=== PATIENT | male | born 1945 | race African-American/Black ===

== ENCOUNTER 2017-10-24 18:56 | Inpatient (IN) | payer MEDICARE, OTHER, MEDICAID ==
[~2017-10-24 18:56] MED LIST: DEXTROSE 50% 50 ML SYRINGE; EPINEPHrine 0.1 MG/ML SYG; NA BICARBONATE 8.4% 50 ML SYG
[2017-10-24] MEDS: ETOMIDATE 20 MG INJ IV (19:22)
[2017-10-24] MEDS: HYDROmorphONE 0.5 MG/0.5 ML SYG IV (19:22)
[2017-10-24] MEDS: PROPOFOL 100 ML IV (19:22)
[2017-10-24] MEDS: SUCCINYLCHOLINE CHLORIDE 100 MG/5 ML SYG IV (19:22)
[2017-10-24 19:23] LABS: ADD MAN DIFF? NO
[2017-10-24 19:24] LABS: BASOPHILS % 0.1 % (0.0-2.0); HEMATOCRIT 27.7 % (42.0-52.0); HEMOGLOBIN 8.5 g/dl (14.0-18.0); LYMPHOCYTES # 1.2 10^3/ul (0.8-2.9); LYMPHOCYTES % 5.4 % (15.0-51.0); MEAN CORPUSCULAR HEMOGLOBIN 27.9 pg (29.0-33.0); MEAN CORPUSCULAR HGB CONC 30.7 g/dl (32.0-37.0); MEAN CORPUSCULAR VOLUME 90.8 fl (82.0-101.0); MEAN PLATELET VOLUME 9.2 fl (7.4-10.4); MONOCYTE # 1.1 10^3/ul (0.3-0.9); MONOCYTES % 5.2 % (0.0-11.0); NEUTROPHIL # 19.2 10^3/ul (1.6-7.5); NEUTROPHILS % 88.8 % (39.0-77.0); PLATELET COUNT 317 10^3/UL (140-415); RED BLOOD COUNT 3.05 10^6/ul (4.70-6.10); RED CELL DISTRIBUTION WIDTH 14.8 % (11.5-14.5)
[2017-10-24 19:24] LABS: WHITE BLOOD COUNT 21.6 10^3/ul (4.8-10.8)
[2017-10-24 19:43] LABS: ALANINE AMINOTRANSFERASE 9 IU/L (13-69); ALBUMIN 3.2 g/dl (3.3-4.9); ALBUMIN/GLOBULIN RATIO 0.54; ALKALINE PHOSPHATASE 215 IU/L (42-121); ANION GAP 20 (8-16); ASPARTATE AMINO TRANSFERASE 29 IU/L (15-46); BILIRUBIN,INDIRECT 0.1 mg/dl (0-1.1); BILIRUBIN,TOTAL 0.1 mg/dl (0.2-1.3); BLOOD UREA NITROGEN 34 mg/dl (7-20); CALCIUM 9.4 mg/dl (8.4-10.2); CARBON DIOXIDE 23 mmol/L (21-31); CHLORIDE 118 mmol/L (97-110); GLUCOSE 188 mg/dl (70-220); POTASSIUM 3.5 mmol/L (3.5-5.1); SODIUM 157 mmol/L (135-144); TOTAL PROTEIN 9.1 g/dl (6.1-8.1)
[2017-10-24 19:54] LABS: TROPONIN-I 0.016 ng/ml (0.00-0.12)
[2017-10-24 19:55] LABS: LACTIC ACID 4.1 mmol/L (0.5-2.0)
[2017-10-24 20:01] LABS: PROTIME 17.4 Sec (11.9-14.9); PT RATIO 1.4
[2017-10-24 20:02] LABS: PARTIAL THROMBOPLASTIN TIME 41.4 Sec (25.0-35.0)
[2017-10-24] MEDS: CEFEPIME 2GM/50 ML (PMX) 50 ML IVPB (20:13)
[2017-10-24] MEDS: NORepinephrine 8MG/250 ML (PMX 250 ML IV (20:15)
[2017-10-24] MEDS: SOD CHLORIDE 0.9% 1,000 ML IV ×5 (20:15→20:17)
[2017-10-24 20:45] LABS: AADO2 Arterial 258.3 mmHg (7.0-24.0); Arterial Blood Gas Oxygen Sat 99.8 mmHG (95.0-98.0); Arterial COHb 0.3 % (0.0-3.0); Arterial Fraction of Oxyhgb 98.9 % (93.0-99.0); Arterial HCO3 13.4 mmol/L (22.0-26.0); Arterial MetHb 0.6 % (0.0-1.5); Arterial Total Hemglobin 8.3 g/dl (12.0-18.0); Arterial pCO2 42.9 mmhg (35-45); MODE VENT - AC; Site Right Brachial
[2017-10-24] MEDS: VECURONIUM 10 MG VIAL IV (21:30)
[2017-10-24] MEDS ORDERED: ACETAMINOPHEN 650MG/20.3ML CUP PO ×2 (22:00→22:30)
[2017-10-24] MEDS ORDERED: ALBUTEROL HFA 8 GM INHALER INH (22:00)
[2017-10-24] MEDS ORDERED: IPRATROPIUM (HFA) 12.9 GM INHALER INH (22:00)
[2017-10-24] MEDS: VECURONIUM 100 MG in DEXTROSE 5% 100 ML IV (22:02)
[2017-10-24] MEDS: MIDAZOLAM (DRIP) 50 mg/50 mL 50 ML IV (22:03)
[2017-10-24] MEDS: VANCOMYCIN 1 GM (PMX) 250 ML IVPB (22:03)
[2017-10-24] MEDS ORDERED: ACETAMINOPHEN 650 MG SUPP PR (22:30)
[2017-10-24] MEDS ORDERED: DEXTROSE 50% 50 ML SYRINGE IV ×2 (22:30)
[2017-10-24] MEDS ORDERED: MEPERIDINE 25 MG INJ IV ×2 (22:30)
[2017-10-24] MEDS: ACCU-CHEK XX ×2 (22:30→23:30)
[2017-10-24 22:44] LABS: LACTIC ACID 8.1 mmol/L (0.5-2.0)
[2017-10-24 22:56] LABS: ADD MAN DIFF? NO
[2017-10-24 22:59] LABS: ABNORMAL IP MESSAGE 1; HEMATOCRIT 23.2 % (42.0-52.0); HEMOGLOBIN 7.2 g/dl (14.0-18.0); LYMPHOCYTES # 0.5 10^3/ul (0.8-2.9); LYMPHOCYTES % 2.5 % (15.0-51.0); MEAN CORPUSCULAR HEMOGLOBIN 28.8 pg (29.0-33.0); MEAN CORPUSCULAR VOLUME 92.8 fl (82.0-101.0); MEAN PLATELET VOLUME 9.3 fl (7.4-10.4); MONOCYTE # 0.6 10^3/ul (0.3-0.9); MONOCYTES % 2.6 % (0.0-11.0); NEUTROPHIL # 20.6 10^3/ul (1.6-7.5); NUCLEATED RED BLOOD CELLS% 0.1 /100WBC (0.0-0.0); PLATELET COUNT 261 10^3/UL (140-415); POSITIVE DIFF @See below
[2017-10-24 22:59] LABS: WHITE BLOOD COUNT 21.9 10^3/ul (4.8-10.8)
[2017-10-24 23:16] LABS: ALANINE AMINOTRANSFERASE 14 IU/L (13-69); ALBUMIN 2.4 g/dl (3.3-4.9); ALKALINE PHOSPHATASE 163 IU/L (42-121); ANION GAP 19 (8-16); ASPARTATE AMINO TRANSFERASE 37 IU/L (15-46); BLOOD UREA NITROGEN 33 mg/dl (7-20); CALCIUM 8.8 mg/dl (8.4-10.2); CARBON DIOXIDE 17 mmol/L (21-31); CHLORIDE 124 mmol/L (97-110); CREATININE 1.67 mg/dl (0.61-1.24); GLUCOSE 232 mg/dl (70-220); SODIUM 157 mmol/L (135-144); TOTAL PROTEIN 7.2 g/dl (6.1-8.1)
[2017-10-24 23:18] LABS: LACTIC ACID 6.7 mmol/L (0.5-2.0)
[2017-10-25] MEDS: ACCU-CHEK XX ×24 (00:30→23:30)
[2017-10-25 02:05] LABS: AADO2 Arterial 174.8 mmHg (7.0-24.0); Allen Test ACCEPTAB; Arterial Base Excess -8.9 mmol/L (-3.0-3); Arterial Blood Gas Oxygen Sat 95.4 mmHG (95.0-98.0); Arterial COHb 0.3 % (0.0-3.0); Arterial Fraction of Oxyhgb 94.7 % (93.0-99.0); Arterial HCO3 17.4 mmol/L (22.0-26.0); Arterial MetHb 0.4 % (0.0-1.5); MODE VENT - AC; Site Left Radial; Temperature 33.1 C
[2017-10-25] MEDS: INSULIN HUMAN REGULAR 100 UNIT in SOD CHLORIDE 0.9% 99 ML IV (03:21)
[2017-10-25] MEDS: SOD CHLORIDE 0.9% 1,000 ML IV (03:33)
[2017-10-25] MEDS ORDERED: VANCOMYCIN IV PER PHARMACY XX (05:00)
[2017-10-25 05:03] LABS: ADD UMIC YES; UR ASCORBIC ACID 40 mg/dL (NEGATIVE); UR BACTERIA FEW /HPF (NONE SEEN); UR BILIRUBIN (Dip) NEGATIVE (NEGATIVE); UR BLOOD (Dip) 2+ mg/dL (NEGATIVE); UR BUDDING YEAST FEW /HPF (NONE SEEN); UR CLARITY CLOUDY (CLEAR); UR COLOR AMBER (YELLOW); UR GLUCOSE (Dip) 1+ mg/dL (NEGATIVE); UR KETONES (Dip) NEGATIVE (NEGATIVE); UR LEUKOCYTE ESTERASE (Dip) 3+ Leu/ul (NEGATIVE); UR MUCUS FEW /HPF (NONE SEEN); UR NITRITE (Dip) NEGATIVE (NEGATIVE); UR NONSQUAMOUS EPITHELIAL CELL 1 /HPF (NONE SEEN); UR RBC > 182 /HPF (0-5); UR SPECIFIC GRAVITY (Dip) 1.018 (1.003-1.030); UR TOTAL PROTEIN (Dip) 3+ mg/dl (NEGATIVE); UR UROBILINOGEN (Dip) NEGATIVE (NEGATIVE); UR WBC 172 /HPF (0-5)
[2017-10-25] MEDS: PANTOPRAZOLE 40 MG INJ IV (05:57)
[2017-10-25] MEDS: OCULAR LUBRICANT 3.5 GM OPH OINT BOTH EYES ×4 (05:58→18:18)
[2017-10-25] MEDS: PIPER-TAZO 3.375 GM IV (PMX) 100 ML IVPB ×3 (05:58→18:26)
[2017-10-25] MEDS: ARTIFICIAL TEARS 15 ML OPH BOTH EYES ×4 (05:59→18:19)
[2017-10-25 06:20] LABS: ALANINE AMINOTRANSFERASE 15 IU/L (13-69); ALBUMIN 2.5 g/dl (3.3-4.9); ALBUMIN/GLOBULIN RATIO 0.51; ALKALINE PHOSPHATASE 165 IU/L (42-121); ANION GAP 19 (8-16); ASPARTATE AMINO TRANSFERASE 49 IU/L (15-46); BLOOD UREA NITROGEN 36 mg/dl (7-20); CALCIUM 8.3 mg/dl (8.4-10.2); CARBON DIOXIDE 17 mmol/L (21-31); CHLORIDE 127 mmol/L (97-110); CREATININE 1.66 mg/dl (0.61-1.24); GLUCOSE 219 mg/dl (70-220); POTASSIUM 3.3 mmol/L (3.5-5.1); SODIUM 160 mmol/L (135-144); TOTAL PROTEIN 7.4 g/dl (6.1-8.1)
[2017-10-25 06:23] LABS: LACTIC ACID 3.1 mmol/L (0.5-2.0)
[2017-10-25] MEDS ORDERED: HEPARIN 1000 UNITS/ML 10 ML INJ IV ×2 (08:00)
[2017-10-25 08:21] LABS: AADO2 Arterial 265.9 mmHg (7.0-24.0); Allen Test ACCEPTAB; Arterial Base Excess -8.8 mmol/L (-3.0-3); Arterial Blood Gas Oxygen Sat 91.4 mmHG (95.0-98.0); Arterial COHb 0.2 % (0.0-3.0); Arterial Fraction of Oxyhgb 91.1 % (93.0-99.0); Arterial HCO3 17.8 mmol/L (22.0-26.0); Arterial MetHb 0.1 % (0.0-1.5); MODE VENT - AC; Site Left Radial; Temperature 32.5 C
[2017-10-25 08:28] LABS: WHITE BLOOD COUNT 28.1 10^3/ul (4.8-10.8)
[2017-10-25 08:28] LABS: ABNORMAL IP MESSAGE 1; HEMATOCRIT 25.1 % (42.0-52.0); HEMOGLOBIN 7.9 g/dl (14.0-18.0); MEAN CORPUSCULAR HEMOGLOBIN 28.9 pg (29.0-33.0); MEAN CORPUSCULAR HGB CONC 31.5 g/dl (32.0-37.0); MEAN CORPUSCULAR VOLUME 91.9 fl (82.0-101.0); MEAN PLATELET VOLUME 9.5 fl (7.4-10.4); NUCLEATED RED BLOOD CELLS% 0.1 /100WBC (0.0-0.0); PLATELET COUNT 216 10^3/UL (140-415); POSITIVE DIFF @See below; RED BLOOD COUNT 2.73 10^6/ul (4.70-6.10); RED CELL DISTRIBUTION WIDTH 15.1 % (11.5-14.5)
[2017-10-25 08:31] LABS: ADD MAN DIFF? YES
[2017-10-25 08:46] LABS: INR 1.49; PROTIME 18.3 Sec (11.9-14.9); PT RATIO 1.4
[2017-10-25 08:47] LABS: PARTIAL THROMBOPLASTIN TIME 40.2 Sec (25.0-35.0)
[2017-10-25 08:49] LABS: ANION GAP 17 (8-16); BLOOD UREA NITROGEN 36 mg/dl (7-20); CALCIUM 8.4 mg/dl (8.4-10.2); CARBON DIOXIDE 17 mmol/L (21-31); CHLORIDE 128 mmol/L (97-110); CREATININE 1.84 mg/dl (0.61-1.24); GLUCOSE 179 mg/dl (70-220); POTASSIUM 3.1 mmol/L (3.5-5.1); SODIUM 159 mmol/L (135-144)
[2017-10-25 09:09] LABS: ACANTHOCYTES 1+ (0-0); ANISOCYTOSIS 1+ (0-0); ECHINOCYTOSIS 1+ (0-0); SCHISTOCYTES 1+ (0-0)
[2017-10-25] MEDS: HEPARIN 1000 UNITS/ML 10 ML INJ IV (09:23)
[2017-10-25] MEDS: HEPARIN 25000 UNITS/250 ML 250 ML IV (09:25)
[2017-10-25] MEDS ORDERED: POTASSIUM CHLORIDE 50 ML IVPB (10:00)
[2017-10-25] MEDS: DEXTROSE 5% 1,000 ML IV ×5 (10:50→21:50)
[2017-10-25 10:59] LABS: BAND NEUTROPHILS #M 3.6 10^3/ul (0.0-0.6); BAND NEUTROPHILS % (M) 13 % (0-4); BURR CELLS 1+ (0-0); LYMPHOCYTES #M 0.5 10^3/ul (0.8-2.9); LYMPHOCYTES % (M) 2 % (15-51); MONOCYTE #M 1.4 10^3/ul (0.3-0.9); MONOCYTES % (M) 5 % (0-11); OVALOCYTES 1+ (0-0); POIKILOCYTOSIS 1+ (0-0); POLYCHROMASIA 1+ (0-0); REACTIVE LYMPHOCYTES #M 0.2 10^3/ul (0.0-0.0); REACTIVE LYMPHOCYTES% (M) 1 % (0-0); SEG NEUT #M 23.2 10^3/ul (1.6-7.5); SEGMENTED NEUTROPHILS (M) % 79 % (39-77); SMUDGE%M 23 % (0-0); SPHEROCYTES 1+ (0-0); TARGET CELLS 1+ (0-0)
[2017-10-25] MEDS: KCL 30 MEQ in NS 250 ML IVPB X1 IVPB (11:23)
[2017-10-25] MEDS: VANCOMYCIN 1.5 GM in SOD CHLORIDE 0.9% 250 ML IVPB (11:38)
[2017-10-25 13:48] LABS: ADD MAN DIFF? NO
[2017-10-25 14:05] LABS: WHITE BLOOD COUNT 24.2 10^3/ul (4.8-10.8)
[2017-10-25 14:05] LABS: ABNORMAL IP MESSAGE 1; BASOPHILS % 0.1 % (0.0-2.0); HEMATOCRIT 23.7 % (42.0-52.0); HEMOGLOBIN 7.2 g/dl (14.0-18.0); LYMPHOCYTES # 1.9 10^3/ul (0.8-2.9); LYMPHOCYTES % 7.8 % (15.0-51.0); MEAN CORPUSCULAR HEMOGLOBIN 28.2 pg (29.0-33.0); MEAN CORPUSCULAR HGB CONC 30.4 g/dl (32.0-37.0); MEAN CORPUSCULAR VOLUME 92.9 fl (82.0-101.0); NEUTROPHIL # 21.2 10^3/ul (1.6-7.5); NEUTROPHILS % 87.6 % (39.0-77.0); PLATELET COUNT 177 10^3/UL (140-415); POSITIVE DIFF @See below; RED BLOOD COUNT 2.55 10^6/ul (4.70-6.10); RED CELL DISTRIBUTION WIDTH 15.4 % (11.5-14.5)
[2017-10-25 14:10] LABS: INR 1.85; PT RATIO 1.7
[2017-10-25 14:17] LABS: ALANINE AMINOTRANSFERASE 25 IU/L (13-69); ALBUMIN 2.6 g/dl (3.3-4.9); ALBUMIN/GLOBULIN RATIO 0.55; ALKALINE PHOSPHATASE 160 IU/L (42-121); AMYLASE 61 U/L (11-123); ANION GAP 20 (8-16); ASPARTATE AMINO TRANSFERASE 67 IU/L (15-46); BLOOD UREA NITROGEN 37 mg/dl (7-20); CALCIUM 8.1 mg/dl (8.4-10.2); CARBON DIOXIDE 19 mmol/L (21-31); CHLORIDE 127 mmol/L (97-110); CREATININE 1.89 mg/dl (0.61-1.24); GLUCOSE 138 mg/dl (70-220); LIPASE 71 U/L (23-300); MAGNESIUM 1.9 mg/dl (1.7-2.5); PHOSPHORUS 4.4 mg/dl (2.5-4.9); POTASSIUM 3.5 mmol/L (3.5-5.1); TOTAL PROTEIN 7.3 g/dl (6.1-8.1)
[2017-10-25 14:23] LABS: SODIUM 162 mmol/L (135-144)
[2017-10-25 14:27] LABS: TROPONIN-I 0.121 ng/ml (0.00-0.12)
[2017-10-25 15:03] LABS: PROTIME 21.8 Sec (11.9-14.9)
[2017-10-25 16:11] LABS: AADO2 Arterial 328.2 mmHg (7.0-24.0); Arterial Base Excess -9.5 mmol/L (-3.0-3); Arterial Blood Gas Oxygen Sat 92.2 mmHG (95.0-98.0); Arterial COHb 0.3 % (0.0-3.0); Arterial Fraction of Oxyhgb 91.6 % (93.0-99.0); Arterial HCO3 17.4 mmol/L (22.0-26.0); Arterial MetHb 0.3 % (0.0-1.5); Arterial Total Hemglobin 8.7 g/dl (12.0-18.0); Arterial pCO2 36.5 mmhg (35-45); MODE VENT - AC; Site Right Brachial; Temperature 33.7 C
[2017-10-25 16:44] LABS: INR 1.76; PT RATIO 1.6
[2017-10-25 16:45] LABS: ALANINE AMINOTRANSFERASE 28 IU/L (13-69); ALBUMIN 2.7 g/dl (3.3-4.9); ALBUMIN/GLOBULIN RATIO 0.57; ALKALINE PHOSPHATASE 167 IU/L (42-121); AMYLASE 66 U/L (11-123); ANION GAP 19 (8-16); ASPARTATE AMINO TRANSFERASE 76 IU/L (15-46); BLOOD UREA NITROGEN 38 mg/dl (7-20); CARBON DIOXIDE 18 mmol/L (21-31); CHLORIDE 123 mmol/L (97-110); CREATININE 1.91 mg/dl (0.61-1.24); GLUCOSE 192 mg/dl (70-220); LIPASE 65 U/L (23-300); MAGNESIUM 1.9 mg/dl (1.7-2.5); PHOSPHORUS 4.5 mg/dl (2.5-4.9); POTASSIUM 3.3 mmol/L (3.5-5.1); SODIUM 157 mmol/L (135-144); TOTAL PROTEIN 7.4 g/dl (6.1-8.1)
[2017-10-25 16:56] LABS: TROPONIN-I 0.118 ng/ml (0.00-0.12)
[2017-10-25] MEDS: LEVOTHYROXINE 25 MCG TAB PO (17:30)
[2017-10-25 17:35] LABS: PARTIAL THROMBOPLASTIN TIME > 180.0 Sec (25.0-35.0)
[2017-10-25] MEDS: POTASSIUM CHLORIDE 100 ML IVPB (17:57)
[2017-10-25] MEDS: PROPOFOL 100 ML IV (18:00)
[2017-10-25 18:38] LABS: SODIUM,URINE RANDOM 89 mmol/L (30-90)
[2017-10-25 19:05] LABS: ADD MAN DIFF? NO
[2017-10-25 19:09] LABS: BASOPHILS % 0.1 % (0.0-2.0); HEMATOCRIT 23.4 % (42.0-52.0); HEMOGLOBIN 7.2 g/dl (14.0-18.0); LYMPHOCYTES # 1.5 10^3/ul (0.8-2.9); LYMPHOCYTES % 6.7 % (15.0-51.0); MEAN CORPUSCULAR HEMOGLOBIN 28.7 pg (29.0-33.0); MEAN CORPUSCULAR HGB CONC 30.8 g/dl (32.0-37.0); MEAN CORPUSCULAR VOLUME 93.2 fl (82.0-101.0); MEAN PLATELET VOLUME 9.8 fl (7.4-10.4); MONOCYTE # 0.9 10^3/ul (0.3-0.9); MONOCYTES % 4.3 % (0.0-11.0); NEUTROPHIL # 19.2 10^3/ul (1.6-7.5); NEUTROPHILS % 88.3 % (39.0-77.0); PLATELET COUNT 151 10^3/UL (140-415); POSITIVE DIFF @See below; RED BLOOD COUNT 2.51 10^6/ul (4.70-6.10); RED CELL DISTRIBUTION WIDTH 15.4 % (11.5-14.5)
[2017-10-25 19:09] LABS: WHITE BLOOD COUNT 21.8 10^3/ul (4.8-10.8)
[2017-10-25 19:11] LABS: OSMOLALITY,URINE 377 mOsm/kg (250-1200)
[2017-10-25 19:28] LABS: INR 1.92; PT RATIO 1.8
[2017-10-25 19:32] LABS: ANION GAP 16 (8-16); BLOOD UREA NITROGEN 38 mg/dl (7-20); CALCIUM 7.7 mg/dl (8.4-10.2); CARBON DIOXIDE 16 mmol/L (21-31); CHLORIDE 122 mmol/L (97-110); CREATININE 2.01 mg/dl (0.61-1.24); GLUCOSE 218 mg/dl (70-220); POTASSIUM 3.4 mmol/L (3.5-5.1); SODIUM 151 mmol/L (135-144)
[2017-10-25 19:45] LABS: PARTIAL THROMBOPLASTIN TIME > 180.0 Sec (25.0-35.0); PROTIME 22.4 Sec (11.9-14.9)
[2017-10-25 19:46] LABS: PARTIAL THROMBOPLASTIN TIME > 180.0 Sec (25.0-35.0)
[2017-10-25 19:48] LABS: PROTIME 20.9 Sec (11.9-14.9)
[2017-10-25 20:32] LABS: AADO2 Arterial 459.5 mmHg (7.0-24.0); Allen Test ACCEPTAB; Arterial Base Excess -8.4 mmol/L (-3.0-3); Arterial Blood Gas Oxygen Sat 97.1 mmHG (95.0-98.0); Arterial COHb 0.3 % (0.0-3.0); Arterial Fraction of Oxyhgb 96.4 % (93.0-99.0); Arterial HCO3 17.5 mmol/L (22.0-26.0); Arterial MetHb 0.4 % (0.0-1.5); Arterial pCO2 31.7 mmhg (35-45); MODE VENT - AC; Site Right Radial; Temperature 33.1 C
[2017-10-25] MEDS: PHENYTOIN 100 MG CAP PO (21:00)
[2017-10-25] MEDS ORDERED: VANCOMYCIN 1.25 GM in SOD CHLORIDE 0.9% 250 ML IVPB (22:00)
[2017-10-25] MEDS ORDERED: VANCOMYCIN 1.5 GM in SOD CHLORIDE 0.9% 250 ML IVPB (22:00)
[2017-10-25] MEDS: ACETAMINOPHEN 650 MG SUPP PR (22:30)
[2017-10-25 22:49] LABS: ANION GAP 18 (8-16); BLOOD UREA NITROGEN 39 mg/dl (7-20); CALCIUM 7.7 mg/dl (8.4-10.2); CARBON DIOXIDE 19 mmol/L (21-31); CHLORIDE 119 mmol/L (97-110); CREATININE 2.02 mg/dl (0.61-1.24); GLUCOSE 218 mg/dl (70-220); POTASSIUM 3.1 mmol/L (3.5-5.1); SODIUM 153 mmol/L (135-144)
[2017-10-25] MEDS: FAMOTIDINE 20 MG TAB PO (23:01)
[2017-10-25] MEDS: ACETAMINOPHEN 650MG/20.3ML CUP PO (23:01)
[2017-10-25] MEDS: FUROSEMIDE 40 MG INJ IV (23:01)
[2017-10-25] MEDS: ATORVASTATIN 20 MG TAB PO (23:02)
[2017-10-25] MEDS: SOD CHLORIDE 0.45% 1,000 ML IV (23:06)
[2017-10-26] MEDS: ARTIFICIAL TEARS 15 ML OPH BOTH EYES ×4 (00:28→18:07)
[2017-10-26] MEDS: OCULAR LUBRICANT 3.5 GM OPH OINT BOTH EYES ×4 (00:28→18:07)
[2017-10-26] MEDS: PIPER-TAZO 3.375 GM IV (PMX) 100 ML IVPB ×3 (00:29→11:35)
[2017-10-26] MEDS: ACCU-CHEK XX ×24 (01:01→23:30)
[2017-10-26 01:06] LABS: ABNORMAL IP MESSAGE 1; HEMATOCRIT 21.7 % (42.0-52.0); MEAN CORPUSCULAR HEMOGLOBIN 28.6 pg (29.0-33.0); MEAN CORPUSCULAR HGB CONC 30.9 g/dl (32.0-37.0); MEAN CORPUSCULAR VOLUME 92.7 fl (82.0-101.0); MEAN PLATELET VOLUME 10.1 fl (7.4-10.4); PLATELET COUNT 143 10^3/UL (140-415); POSITIVE DIFF @See below; RED BLOOD COUNT 2.34 10^6/ul (4.70-6.10); RED CELL DISTRIBUTION WIDTH 15.2 % (11.5-14.5)
[2017-10-26 01:06] LABS: WHITE BLOOD COUNT 18.9 10^3/ul (4.8-10.8)
[2017-10-26] MEDS: NORepinephrine 8MG/250 ML (PMX 250 ML IV (01:08)
[2017-10-26 01:24] LABS: ADD MAN DIFF? YES; HEMOGLOBIN 6.7 g/dl (14.0-18.0)
[2017-10-26 01:29] LABS: ALANINE AMINOTRANSFERASE 32 IU/L (13-69); ALBUMIN 2.3 g/dl (3.3-4.9); ALBUMIN/GLOBULIN RATIO 0.53; ALKALINE PHOSPHATASE 144 IU/L (42-121); AMYLASE 69 U/L (11-123); ANION GAP 16 (8-16); ASPARTATE AMINO TRANSFERASE 99 IU/L (15-46); BLOOD UREA NITROGEN 38 mg/dl (7-20); CALCIUM 7.5 mg/dl (8.4-10.2); CARBON DIOXIDE 18 mmol/L (21-31); CHLORIDE 118 mmol/L (97-110); CREATININE 1.95 mg/dl (0.61-1.24); GLUCOSE 143 mg/dl (70-220); LIPASE 184 U/L (23-300); MAGNESIUM 1.6 mg/dl (1.7-2.5); PHOSPHORUS 4.1 mg/dl (2.5-4.9); SODIUM 149 mmol/L (135-144); TOTAL PROTEIN 6.6 g/dl (6.1-8.1)
[2017-10-26 01:40] LABS: TROPONIN-I 0.088 ng/ml (0.00-0.12)
[2017-10-26 01:46] LABS: POTASSIUM 2.8 mmol/L (3.5-5.1)
[2017-10-26 01:47] LABS: ANISOCYTOSIS 1+ (0-0); BAND NEUTROPHILS #M 3.7 10^3/ul (0.0-0.6); BAND NEUTROPHILS % (M) 20 % (0-4); LYMPHOCYTES #M 1.1 10^3/ul (0.8-2.9); LYMPHOCYTES % (M) 6 % (15-51); MONOCYTE #M 0.1 10^3/ul (0.3-0.9); MONOCYTES % (M) 1 % (0-11); PLATELET ESTIMATE NORMAL; POIKILOCYTOSIS 3+ (0-0); POLYCHROMASIA 3+ (0-0); SEG NEUT #M 14.5 10^3/ul (1.6-7.5); SEGMENTED NEUTROPHILS (M) % 73 % (39-77); SMUDGE%M 2 % (0-0)
[2017-10-26 02:07] LABS: AADO2 Arterial 185.6 mmHg (7.0-24.0); Allen Test ACCEPTAB; Arterial Base Excess -9.2 mmol/L (-3.0-3); Arterial Blood Gas Oxygen Sat 99.7 mmHG (95.0-98.0); Arterial COHb 0.3 % (0.0-3.0); Arterial MetHb 0.4 % (0.0-1.5); Arterial pCO2 28.2 mmhg (35-45); MODE VENT - AC; Site Right Radial; Temperature 34.1 C
[2017-10-26] MEDS: SOD CHLORIDE 0.45% 1,000 ML IV ×2 (02:08→06:30)
[2017-10-26] MEDS ORDERED: POTASSIUM CHLORIDE 50 ML IVPB (02:30)
[2017-10-26] MEDS: POTASSIUM CHLORIDE 20 MEQ/SW 100 ML IVPB ×2 (03:49→05:37)
[2017-10-26] MEDS: ACETAMINOPHEN 650 MG SUPP PR ×4 (04:30→21:39)
[2017-10-26] MEDS: DEXTROSE 5% 1,000 ML IV ×4 (04:49→20:38)
[2017-10-26] MEDS: ACETAMINOPHEN 650MG/20.3ML CUP PO ×4 (05:03→21:38)
[2017-10-26 06:23] LABS: WHITE BLOOD COUNT 20.4 10^3/ul (4.8-10.8)
[2017-10-26 06:23] LABS: ABNORMAL IP MESSAGE 1; HEMATOCRIT 21.2 % (42.0-52.0); MEAN CORPUSCULAR HEMOGLOBIN 28.6 pg (29.0-33.0); MEAN CORPUSCULAR HGB CONC 31.1 g/dl (32.0-37.0); MEAN CORPUSCULAR VOLUME 91.8 fl (82.0-101.0); MEAN PLATELET VOLUME 10.3 fl (7.4-10.4); NUCLEATED RED BLOOD CELLS% 0.1 /100WBC (0.0-0.0); PLATELET COUNT 149 10^3/UL (140-415); POSITIVE DIFF @See below; RED BLOOD COUNT 2.31 10^6/ul (4.70-6.10); RED CELL DISTRIBUTION WIDTH 15.1 % (11.5-14.5)
[2017-10-26 06:30] LABS: ADD MAN DIFF? YES; HEMOGLOBIN 6.6 g/dl (14.0-18.0)
[2017-10-26] MEDS ORDERED: LORAZEPAM 2 MG INJ IV (06:30)
[2017-10-26] MEDS: LORAZEPAM 2 MG INJ IV ×3 (06:44→20:39)
[2017-10-26 06:53] LABS: INR 1.84; PROTIME 21.7 Sec (11.9-14.9); PT RATIO 1.7
[2017-10-26 06:56] LABS: ALANINE AMINOTRANSFERASE 30 IU/L (13-69); ALBUMIN 2.3 g/dl (3.3-4.9); ALBUMIN/GLOBULIN RATIO 0.52; ALKALINE PHOSPHATASE 149 IU/L (42-121); AMYLASE 95 U/L (11-123); ANION GAP 18 (8-16); ASPARTATE AMINO TRANSFERASE 92 IU/L (15-46); BLOOD UREA NITROGEN 39 mg/dl (7-20); CALCIUM 7.3 mg/dl (8.4-10.2); CARBON DIOXIDE 18 mmol/L (21-31); CHLORIDE 117 mmol/L (97-110); CREATININE 1.99 mg/dl (0.61-1.24); GLUCOSE 90 mg/dl (70-220); LIPASE 285 U/L (23-300); MAGNESIUM 1.5 mg/dl (1.7-2.5); PHOSPHORUS 4.4 mg/dl (2.5-4.9); POTASSIUM 3.4 mmol/L (3.5-5.1); SODIUM 150 mmol/L (135-144); TOTAL PROTEIN 6.7 g/dl (6.1-8.1)
[2017-10-26 06:59] LABS: TROPONIN-I 0.092 ng/ml (0.00-0.12)
[2017-10-26 07:14] LABS: PARTIAL THROMBOPLASTIN TIME 92.6 Sec (25.0-35.0)
[2017-10-26] MEDS: LEVETIRACETAM 1000 MG (PMX) 100 ML IVPB (07:14)
[2017-10-26] MEDS: LEVOTHYROXINE 25 MCG TAB PO (08:04)
[2017-10-26] MEDS: PROPOFOL 100 ML IV ×3 (08:05→22:32)
[2017-10-26 08:28] LABS: AADO2 Arterial 115.4 mmHg (7.0-24.0); Allen Test ACCEPTAB; Arterial Base Excess -8.4 mmol/L (-3.0-3); Arterial COHb 0.4 % (0.0-3.0); Arterial Fraction of Oxyhgb 98.1 % (93.0-99.0); Arterial HCO3 16.2 mmol/L (22.0-26.0); Arterial MetHb 0.5 % (0.0-1.5); Arterial Total Hemglobin 7.5 g/dl (12.0-18.0); Arterial pCO2 27.2 mmhg (35-45); MODE VENT - AC; Site Right Radial; Temperature 35.1 C
[2017-10-26 08:47] LABS: IMMEDIATE SPIN CROSSMATCH 1 2
[2017-10-26] MEDS ORDERED: PHENYTOIN 100 MG CAP PO (09:00)
[2017-10-26] MEDS: INSULIN HUMAN REGULAR 100 UNIT in SOD CHLORIDE 0.9% 99 ML IV (09:00)
[2017-10-26] MEDS: ASPIRIN (EC) 81 MG TAB PO (09:00)
[2017-10-26] MEDS: PHENYTOIN (100 MG/4 ML) CUP NGT (09:30)
[2017-10-26] MEDS: FAMOTIDINE 20 MG TAB PO ×2 (09:32→20:39)
[2017-10-26] MEDS: BICALUTAMIDE 50 MG TAB PO (09:32)
[2017-10-26 09:50] LABS: ANISOCYTOSIS 1+ (0-0); BAND NEUTROPHILS % (M) 10 % (0-4); BURR CELLS 1+ (0-0); LYMPHOCYTES #M 0.6 10^3/ul (0.8-2.9); LYMPHOCYTES % (M) 3 % (15-51); MONOCYTES % (M) 5 % (0-11); PLATELET ESTIMATE NORMAL; POIKILOCYTOSIS 3+ (0-0); SEG NEUT #M 17.1 10^3/ul (1.6-7.5); SEGMENTED NEUTROPHILS (M) % 82 % (39-77); SMUDGE%M 1 % (0-0)
[2017-10-26 13:18] LABS: ADD MAN DIFF? NO
[2017-10-26 13:28] LABS: WHITE BLOOD COUNT 19.8 10^3/ul (4.8-10.8)
[2017-10-26 13:28] LABS: BASOPHIL # 0.1 10^3/ul (0.0-0.1); BASOPHILS % 0.3 % (0.0-2.0); EOSINOPHILS # 0.4 10^3/ul (0.0-0.5); HEMATOCRIT 24.8 % (42.0-52.0); HEMOGLOBIN 8.3 g/dl (14.0-18.0); MEAN CORPUSCULAR HEMOGLOBIN 29.6 pg (29.0-33.0); MEAN CORPUSCULAR HGB CONC 33.5 g/dl (32.0-37.0); MEAN CORPUSCULAR VOLUME 88.6 fl (82.0-101.0); MEAN PLATELET VOLUME 10.3 fl (7.4-10.4); MONOCYTE # 0.7 10^3/ul (0.3-0.9); MONOCYTES % 3.7 % (0.0-11.0); NEUTROPHIL # 17.5 10^3/ul (1.6-7.5); NEUTROPHILS % 88.4 % (39.0-77.0); NUCLEATED RED BLOOD CELLS% 0.1 /100WBC (0.0-0.0); PLATELET COUNT 143 10^3/UL (140-415); POSITIVE DIFF @See below; RED CELL DISTRIBUTION WIDTH 15.3 % (11.5-14.5)
[2017-10-26 13:46] LABS: ALANINE AMINOTRANSFERASE 33 IU/L (13-69); ALBUMIN 2.1 g/dl (3.3-4.9); ALBUMIN/GLOBULIN RATIO 0.48; ALKALINE PHOSPHATASE 147 IU/L (42-121); AMYLASE 152 U/L (11-123); ANION GAP 17 (8-16); ASPARTATE AMINO TRANSFERASE 84 IU/L (15-46); BILIRUBIN,INDIRECT 0.3 mg/dl (0-1.1); BILIRUBIN,TOTAL 0.3 mg/dl (0.2-1.3); BLOOD UREA NITROGEN 39 mg/dl (7-20); CARBON DIOXIDE 15 mmol/L (21-31); CHLORIDE 116 mmol/L (97-110); CREATININE 2.14 mg/dl (0.61-1.24); GLUCOSE 105 mg/dl (70-220); LIPASE 750 U/L (23-300); MAGNESIUM 1.5 mg/dl (1.7-2.5); POTASSIUM 3.3 mmol/L (3.5-5.1); SODIUM 145 mmol/L (135-144); TOTAL PROTEIN 6.4 g/dl (6.1-8.1)
[2017-10-26] MEDS: HEPARIN 25000 UNITS/250 ML 250 ML IV (13:48)
[2017-10-26 13:57] LABS: TROPONIN-I 0.088 ng/ml (0.00-0.12)
[2017-10-26 14:07] LABS: INR 1.78; PROTIME 21.1 Sec (11.9-14.9); PT RATIO 1.6
[2017-10-26 14:12] LABS: PARTIAL THROMBOPLASTIN TIME 90.4 Sec (25.0-35.0)
[2017-10-26 14:19] LABS: PLATELET COUNT 143 10^3/UL (140-440)
[2017-10-26 14:25] LABS: PROTIME 21.1 Sec (11.9-14.9); PT RATIO 1.6
[2017-10-26 14:26] LABS: INR 1.78; PARTIAL THROMBOPLASTIN TIME 90.6 Sec (25.0-35.0)
[2017-10-26 14:40] LABS: FIBRIN SPLIT PRODUCT >10 and <40 ug/ml (<10)
[2017-10-26 15:44] LABS: D-DIMER > 10000.00 ng/ml (<460); THROMBIN TIME > 100.0 SEC (13.8-19.1)
[2017-10-26] MEDS: PIPER-TAZO 2.25 GM (PMX) 50 ML IVPB (18:07)
[2017-10-26 20:01] LABS: ADD MAN DIFF? NO
[2017-10-26 20:28] LABS: ALANINE AMINOTRANSFERASE 29 IU/L (13-69); ALBUMIN 2.1 g/dl (3.3-4.9); ALKALINE PHOSPHATASE 149 IU/L (42-121); AMYLASE 134 U/L (11-123); ANION GAP 17 (8-16); ASPARTATE AMINO TRANSFERASE 81 IU/L (15-46); BASOPHIL # 0.1 10^3/ul (0.0-0.1); BASOPHILS % 0.4 % (0.0-2.0); BILIRUBIN,INDIRECT 0.1 mg/dl (0-1.1); BILIRUBIN,TOTAL 0.1 mg/dl (0.2-1.3); BLOOD UREA NITROGEN 40 mg/dl (7-20); CALCIUM 6.9 mg/dl (8.4-10.2); CARBON DIOXIDE 15 mmol/L (21-31); CHLORIDE 114 mmol/L (97-110); CREATININE 2.32 mg/dl (0.61-1.24); EOSINOPHILS # 0.5 10^3/ul (0.0-0.5); EOSINOPHILS % 2.6 % (0.0-7.0); GLUCOSE 95 mg/dl (70-220); HEMATOCRIT 23.5 % (42.0-52.0); HEMOGLOBIN 7.8 g/dl (14.0-18.0); LIPASE 490 U/L (23-300); LYMPHOCYTES % 5.6 % (15.0-51.0); MAGNESIUM 1.6 mg/dl (1.7-2.5); MEAN CORPUSCULAR HEMOGLOBIN 28.8 pg (29.0-33.0); MEAN CORPUSCULAR HGB CONC 33.2 g/dl (32.0-37.0); MEAN CORPUSCULAR VOLUME 86.7 fl (82.0-101.0); MEAN PLATELET VOLUME 10.8 fl (7.4-10.4); MONOCYTE # 0.7 10^3/ul (0.3-0.9); NEUTROPHIL # 14.8 10^3/ul (1.6-7.5); NEUTROPHILS % 86.9 % (39.0-77.0); NUCLEATED RED BLOOD CELLS% 0.2 /100WBC (0.0-0.0); PHOSPHORUS 3.7 mg/dl (2.5-4.9); PLATELET COUNT 140 10^3/UL (140-415); POSITIVE DIFF @See below; POTASSIUM 3.2 mmol/L (3.5-5.1); RED BLOOD COUNT 2.71 10^6/ul (4.70-6.10); RED CELL DISTRIBUTION WIDTH 15.9 % (11.5-14.5); SODIUM 143 mmol/L (135-144); TOTAL PROTEIN 6.3 g/dl (6.1-8.1)
[2017-10-26 20:30] LABS: INR 1.76; PROTIME 20.9 Sec (11.9-14.9); PT RATIO 1.6
[2017-10-26 20:37] LABS: TROPONIN-I 0.084 ng/ml (0.00-0.12)
[2017-10-26] MEDS: PHENYTOIN (100 MG/4 ML) CUP GTB (21:39)
[2017-10-26] MEDS: VANCOMYCIN 1.5 GM in SOD CHLORIDE 0.9% 250 ML IVPB (22:32)
[2017-10-27] MEDS: ACCU-CHEK XX ×16 (00:21→15:50)
[2017-10-27] MEDS: OCULAR LUBRICANT 3.5 GM OPH OINT BOTH EYES ×5 (00:44→23:22)
[2017-10-27 00:45] LABS: ADD MAN DIFF? NO
[2017-10-27] MEDS: ARTIFICIAL TEARS 15 ML OPH BOTH EYES ×5 (00:45→23:22)
[2017-10-27] MEDS: PIPER-TAZO 2.25 GM (PMX) 50 ML IVPB ×6 (00:45→23:23)
[2017-10-27 00:48] LABS: WHITE BLOOD COUNT 19.1 10^3/ul (4.8-10.8)
[2017-10-27 00:48] LABS: BASOPHIL # 0.1 10^3/ul (0.0-0.1); BASOPHILS % 0.3 % (0.0-2.0); EOSINOPHILS # 0.6 10^3/ul (0.0-0.5); EOSINOPHILS % 3.2 % (0.0-7.0); HEMATOCRIT 23.6 % (42.0-52.0); LYMPHOCYTES # 1.2 10^3/ul (0.8-2.9); LYMPHOCYTES % 6.2 % (15.0-51.0); MEAN CORPUSCULAR HEMOGLOBIN 29.3 pg (29.0-33.0); MEAN CORPUSCULAR HGB CONC 33.9 g/dl (32.0-37.0); MEAN CORPUSCULAR VOLUME 86.4 fl (82.0-101.0); MEAN PLATELET VOLUME 10.9 fl (7.4-10.4); MONOCYTE # 0.7 10^3/ul (0.3-0.9); MONOCYTES % 3.6 % (0.0-11.0); NEUTROPHIL # 16.4 10^3/ul (1.6-7.5); NUCLEATED RED BLOOD CELLS # 0.1 10^3/ul (0.0-0.0); NUCLEATED RED BLOOD CELLS% 0.3 /100WBC (0.0-0.0); PLATELET COUNT 141 10^3/UL (140-415); RED BLOOD COUNT 2.73 10^6/ul (4.70-6.10); RED CELL DISTRIBUTION WIDTH 15.6 % (11.5-14.5)
[2017-10-27 01:19] LABS: ALANINE AMINOTRANSFERASE 30 IU/L (13-69); ALBUMIN 2.3 g/dl (3.3-4.9); ALBUMIN/GLOBULIN RATIO 0.53; ALKALINE PHOSPHATASE 139 IU/L (42-121); AMYLASE 120 U/L (11-123); ANION GAP 19 (8-16); ASPARTATE AMINO TRANSFERASE 80 IU/L (15-46); BLOOD UREA NITROGEN 42 mg/dl (7-20); CARBON DIOXIDE 14 mmol/L (21-31); CHLORIDE 114 mmol/L (97-110); CREATININE 2.41 mg/dl (0.61-1.24); GLUCOSE 78 mg/dl (70-220); LIPASE 370 U/L (23-300); MAGNESIUM 1.5 mg/dl (1.7-2.5); PHOSPHORUS 3.6 mg/dl (2.5-4.9); POTASSIUM 3.1 mmol/L (3.5-5.1); SODIUM 144 mmol/L (135-144); TOTAL PROTEIN 6.6 g/dl (6.1-8.1)
[2017-10-27 01:29] LABS: TROPONIN-I 0.071 ng/ml (0.00-0.12)
[2017-10-27] MEDS: PROPOFOL 100 ML IV ×4 (02:53→20:30)
[2017-10-27] MEDS: ACETAMINOPHEN 650 MG SUPP PR ×2 (04:30→10:30)
[2017-10-27] MEDS: ACETAMINOPHEN 650MG/20.3ML CUP PO ×2 (04:49→10:30)
[2017-10-27] MEDS: DEXTROSE 5% 1,000 ML IV (04:51)
[2017-10-27 05:16] LABS: ADD MAN DIFF? NO
[2017-10-27 05:18] LABS: WHITE BLOOD COUNT 19.9 10^3/ul (4.8-10.8)
[2017-10-27 05:18] LABS: BASOPHILS % 0.2 % (0.0-2.0); EOSINOPHILS # 0.7 10^3/ul (0.0-0.5); EOSINOPHILS % 3.4 % (0.0-7.0); HEMATOCRIT 22.7 % (42.0-52.0); HEMOGLOBIN 7.7 g/dl (14.0-18.0); LYMPHOCYTES # 1.2 10^3/ul (0.8-2.9); MEAN CORPUSCULAR HEMOGLOBIN 29.2 pg (29.0-33.0); MEAN CORPUSCULAR HGB CONC 33.9 g/dl (32.0-37.0); MEAN PLATELET VOLUME 10.8 fl (7.4-10.4); MONOCYTE # 0.7 10^3/ul (0.3-0.9); MONOCYTES % 3.4 % (0.0-11.0); NEUTROPHIL # 17.1 10^3/ul (1.6-7.5); NUCLEATED RED BLOOD CELLS% 0.2 /100WBC (0.0-0.0); PLATELET COUNT 144 10^3/UL (140-415); RED BLOOD COUNT 2.64 10^6/ul (4.70-6.10); RED CELL DISTRIBUTION WIDTH 15.5 % (11.5-14.5)
[2017-10-27 05:49] LABS: INR 1.65; PROTIME 19.9 Sec (11.9-14.9); PT RATIO 1.6
[2017-10-27 06:06] LABS: TROPONIN-I 0.071 ng/ml (0.00-0.12)
[2017-10-27 06:12] LABS: ALANINE AMINOTRANSFERASE 28 IU/L (13-69); ALBUMIN/GLOBULIN RATIO 0.47; ALKALINE PHOSPHATASE 136 IU/L (42-121); AMYLASE 104 U/L (11-123); ANION GAP 18 (8-16); ASPARTATE AMINO TRANSFERASE 80 IU/L (15-46); BLOOD UREA NITROGEN 42 mg/dl (7-20); CALCIUM 6.8 mg/dl (8.4-10.2); CARBON DIOXIDE 13 mmol/L (21-31); CHLORIDE 115 mmol/L (97-110); CREATININE 2.51 mg/dl (0.61-1.24); GLUCOSE 111 mg/dl (70-220); LIPASE 256 U/L (23-300); MAGNESIUM 1.5 mg/dl (1.7-2.5); PHOSPHORUS 3.7 mg/dl (2.5-4.9); POTASSIUM 3.4 mmol/L (3.5-5.1); SODIUM 143 mmol/L (135-144); TOTAL PROTEIN 6.2 g/dl (6.1-8.1)
[2017-10-27 06:16] LABS: PARTIAL THROMBOPLASTIN TIME 107.9 Sec (25.0-35.0)
[2017-10-27] MEDS: LEVOTHYROXINE 25 MCG TAB PO ×2 (06:18→08:32)
[2017-10-27] MEDS: FAMOTIDINE 20 MG TAB PO ×2 (08:32→20:30)
[2017-10-27] MEDS: POTASSIUM CHLORIDE 20 MEQ POWDER FOR ORAL SOLN NGT (08:32)
[2017-10-27] MEDS: ASPIRIN 81 MG TAB NGT (08:32)
[2017-10-27] MEDS: PHENYTOIN (100 MG/4 ML) CUP NGT (08:33)
[2017-10-27] MEDS ORDERED: POTASSIUM CHLORIDE 20 MEQ in DEXTROSE 5% 1,000 ML IV (08:33)
[2017-10-27] MEDS: BICALUTAMIDE 50 MG TAB PO (08:34)
[2017-10-27] MEDS: MUPIROCIN 2% 22 GM OINT TOP ×2 (09:00→20:32)
[2017-10-27] MEDS ORDERED: POTASSIUM CHLORIDE 50 ML IVPB (09:00)
[2017-10-27] MEDS ORDERED: LEVETIRACETAM 1000 MG (PMX) 100 ML IVPB (10:00)
[2017-10-27] MEDS: LEVETIRACETAM 1000 MG (PMX) 100 ML IVPB (11:20)
[2017-10-27] MEDS: POTASSIUM CHLORIDE 100 ML IVPB (11:20)
[2017-10-27] MEDS: D5W + KCL 20 MEQ 1,000 ML IV (11:20)
[2017-10-27] MEDS: MAGNESIUM SULFATE 1 GM/D5W 100 ML IVPB (11:21)
[2017-10-27] MEDS: HEPARIN 25000 UNITS/250 ML 250 ML IV (11:45)
[2017-10-27 13:15] LABS: ADD MAN DIFF? NO
[2017-10-27 13:18] LABS: WHITE BLOOD COUNT 19.3 10^3/ul (4.8-10.8)
[2017-10-27 13:18] LABS: BASOPHILS % 0.2 % (0.0-2.0); EOSINOPHILS # 0.7 10^3/ul (0.0-0.5); EOSINOPHILS % 3.8 % (0.0-7.0); HEMOGLOBIN 7.8 g/dl (14.0-18.0); LYMPHOCYTES % 5.4 % (15.0-51.0); MEAN CORPUSCULAR HEMOGLOBIN 29.2 pg (29.0-33.0); MEAN CORPUSCULAR HGB CONC 33.9 g/dl (32.0-37.0); MEAN CORPUSCULAR VOLUME 86.1 fl (82.0-101.0); MEAN PLATELET VOLUME 10.4 fl (7.4-10.4); MONOCYTE # 0.6 10^3/ul (0.3-0.9); NEUTROPHIL # 16.7 10^3/ul (1.6-7.5); NEUTROPHILS % 86.6 % (39.0-77.0); NUCLEATED RED BLOOD CELLS # 0.1 10^3/ul (0.0-0.0); NUCLEATED RED BLOOD CELLS% 0.3 /100WBC (0.0-0.0); PLATELET COUNT 137 10^3/UL (140-415); POSITIVE DIFF @See below; RED BLOOD COUNT 2.67 10^6/ul (4.70-6.10); RED CELL DISTRIBUTION WIDTH 15.7 % (11.5-14.5)
[2017-10-27 13:42] LABS: INR 1.68; PROTIME 20.1 Sec (11.9-14.9); PT RATIO 1.6
[2017-10-27 13:45] LABS: PHENYTOIN (DILANTIN) < 3.0 ug/ml (10.0-20.0)
[2017-10-27 13:59] LABS: PARTIAL THROMBOPLASTIN TIME 95.1 Sec (25.0-35.0)
[2017-10-27 14:14] LABS: ALANINE AMINOTRANSFERASE 29 IU/L (13-69); ALBUMIN/GLOBULIN RATIO 0.54; ALKALINE PHOSPHATASE 137 IU/L (42-121); AMYLASE 65 U/L (11-123); ANION GAP 17 (8-16); ASPARTATE AMINO TRANSFERASE 74 IU/L (15-46); BLOOD UREA NITROGEN 43 mg/dl (7-20); CALCIUM 6.9 mg/dl (8.4-10.2); CARBON DIOXIDE 15 mmol/L (21-31); CHLORIDE 115 mmol/L (97-110); CREATININE 2.68 mg/dl (0.61-1.24); GLUCOSE 77 mg/dl (70-220); LIPASE 208 U/L (23-300); MAGNESIUM 1.5 mg/dl (1.7-2.5); PHOSPHORUS 4.4 mg/dl (2.5-4.9); POTASSIUM 3.5 mmol/L (3.5-5.1); SODIUM 143 mmol/L (135-144); TOTAL PROTEIN 5.7 g/dl (6.1-8.1)
[2017-10-27 14:25] LABS: TROPONIN-I 0.048 ng/ml (0.00-0.12)
[2017-10-27] MEDS: NA BICARBONATE 650 MG TAB PO ×2 (14:52→21:48)
[2017-10-27 16:51] LABS: PSA, FREE >17.0 ng/mL
[2017-10-27] MEDS: INSULIN ASPART [NOVOLOG] 3 ML PEN SC ×2 (18:00→23:47)
[2017-10-27] MEDS: INSULIN GLARGINE [LANtus] 3 ML PEN SC (18:35)
[2017-10-27 18:42] LABS: ADD MAN DIFF? NO
[2017-10-27 18:46] LABS: WHITE BLOOD COUNT 20.2 10^3/ul (4.8-10.8)
[2017-10-27 18:46] LABS: BASOPHILS % 0.1 % (0.0-2.0); EOSINOPHILS # 0.8 10^3/ul (0.0-0.5); HEMATOCRIT 23.6 % (42.0-52.0); HEMOGLOBIN 7.9 g/dl (14.0-18.0); LYMPHOCYTES # 1.3 10^3/ul (0.8-2.9); LYMPHOCYTES % 6.2 % (15.0-51.0); MEAN CORPUSCULAR HEMOGLOBIN 28.5 pg (29.0-33.0); MEAN CORPUSCULAR HGB CONC 33.5 g/dl (32.0-37.0); MEAN CORPUSCULAR VOLUME 85.2 fl (82.0-101.0); MEAN PLATELET VOLUME 11.1 fl (7.4-10.4); MONOCYTE # 0.7 10^3/ul (0.3-0.9); MONOCYTES % 3.4 % (0.0-11.0); NEUTROPHIL # 17.2 10^3/ul (1.6-7.5); NUCLEATED RED BLOOD CELLS% 0.2 /100WBC (0.0-0.0); PLATELET COUNT 147 10^3/UL (140-415); RED BLOOD COUNT 2.77 10^6/ul (4.70-6.10); RED CELL DISTRIBUTION WIDTH 15.8 % (11.5-14.5)
[2017-10-27 19:10] LABS: ALANINE AMINOTRANSFERASE 30 IU/L (13-69); ALBUMIN 2.3 g/dl (3.3-4.9); ALBUMIN/GLOBULIN RATIO 0.56; ALKALINE PHOSPHATASE 148 IU/L (42-121); AMYLASE 76 U/L (11-123); ANION GAP 16 (8-16); ASPARTATE AMINO TRANSFERASE 77 IU/L (15-46); BLOOD UREA NITROGEN 45 mg/dl (7-20); CALCIUM 7.2 mg/dl (8.4-10.2); CARBON DIOXIDE 15 mmol/L (21-31); CHLORIDE 112 mmol/L (97-110); GLUCOSE 77 mg/dl (70-220); INR 1.62; LIPASE 200 U/L (23-300); MAGNESIUM 1.7 mg/dl (1.7-2.5); PHOSPHORUS 4.6 mg/dl (2.5-4.9); POTASSIUM 3.4 mmol/L (3.5-5.1); PROTIME 19.6 Sec (11.9-14.9); PT RATIO 1.5; SODIUM 140 mmol/L (135-144); TOTAL PROTEIN 6.4 g/dl (6.1-8.1)
[2017-10-27 19:21] LABS: TROPONIN-I 0.042 ng/ml (0.00-0.12)
[2017-10-27] MEDS: PHENYTOIN (100 MG/4 ML) CUP GTB (20:29)
[2017-10-27 20:31] LABS: PARTIAL THROMBOPLASTIN TIME 70.6 Sec (25.0-35.0)
[2017-10-27] MEDS: COLLAGENASE 30 GM TUBE TOP (20:40)
[2017-10-27] MEDS ORDERED: LEVETIRACETAM 500 MG (PMX) 100 ML IVPB (21:00)
[2017-10-27] MEDS: LEVETIRACETAM 1500 MG (PMX) 100 ML IVPB (21:48)
[2017-10-27] MEDS ORDERED: GLUCOSE GEL 15 GRAM TUBE BUCCAL (23:45)
[2017-10-27] MEDS ORDERED: GLUCAGON 1 MG INJ IM (23:45)
[2017-10-27] MEDS ORDERED: GLUCOSE GEL 15 GRAM TUBE PO ×2 (23:45)
[2017-10-28] MEDS ORDERED: FOSPHENYTOIN 100 MG PE/2ML INJ IV
[2017-10-28] MEDS: INSULIN ASPART [NOVOLOG] 3 ML PEN SC ×6 (00:03→21:33)
[2017-10-28] MEDS: LACOSAMIDE (100 MG/10 ML PO SYR) GTB ×3 (00:37→23:18)
[2017-10-28] MEDS: SOD CHLORIDE 0.9% IV (00:37)
[2017-10-28] MEDS: FOSPHENYTOIN IV (00:37)
[2017-10-28] MEDS: PROPOFOL 100 ML IV ×5 (00:46→18:45)
[2017-10-28] MEDS: D5W + KCL 20 MEQ 1,000 ML IV (01:34)
[2017-10-28] MEDS: PIPER-TAZO 2.25 GM (PMX) 50 ML IVPB ×3 (05:11→21:26)
[2017-10-28] MEDS: NA BICARBONATE 650 MG TAB PO ×3 (05:11→21:25)
[2017-10-28] MEDS: FOSPHENYTOIN 100 MG PE/2ML INJ IV ×3 (05:11→23:18)
[2017-10-28] MEDS: ARTIFICIAL TEARS 15 ML OPH BOTH EYES ×4 (05:14→23:20)
[2017-10-28] MEDS: OCULAR LUBRICANT 3.5 GM OPH OINT BOTH EYES ×4 (05:14→23:19)
[2017-10-28 06:07] LABS: ADD MAN DIFF? NO
[2017-10-28 06:12] LABS: WHITE BLOOD COUNT 22.7 10^3/ul (4.8-10.8)
[2017-10-28 06:12] LABS: BASOPHIL # 0.1 10^3/ul (0.0-0.1); BASOPHILS % 0.2 % (0.0-2.0); EOSINOPHILS # 0.9 10^3/ul (0.0-0.5); HEMATOCRIT 24.8 % (42.0-52.0); HEMOGLOBIN 8.3 g/dl (14.0-18.0); LYMPHOCYTES # 1.2 10^3/ul (0.8-2.9); LYMPHOCYTES % 5.3 % (15.0-51.0); MEAN CORPUSCULAR HGB CONC 33.5 g/dl (32.0-37.0); MEAN CORPUSCULAR VOLUME 86.7 fl (82.0-101.0); MEAN PLATELET VOLUME 10.9 fl (7.4-10.4); MONOCYTE # 0.9 10^3/ul (0.3-0.9); MONOCYTES % 3.8 % (0.0-11.0); NEUTROPHIL # 19.5 10^3/ul (1.6-7.5); NEUTROPHILS % 85.7 % (39.0-77.0); NUCLEATED RED BLOOD CELLS # 0.1 10^3/ul (0.0-0.0); NUCLEATED RED BLOOD CELLS% 0.3 /100WBC (0.0-0.0); PLATELET COUNT 149 10^3/UL (140-415); POSITIVE DIFF @See below; RED BLOOD COUNT 2.86 10^6/ul (4.70-6.10); RED CELL DISTRIBUTION WIDTH 15.8 % (11.5-14.5)
[2017-10-28 06:36] LABS: MAGNESIUM 1.7 mg/dl (1.7-2.5)
[2017-10-28 06:36] LABS: PHOSPHORUS 5.9 mg/dl (2.5-4.9)
[2017-10-28 06:43] LABS: PHENYTOIN (DILANTIN) 15.1 ug/ml (10.0-20.0)
[2017-10-28 06:48] LABS: PARTIAL THROMBOPLASTIN TIME 115.9 Sec (25.0-35.0)
[2017-10-28 07:33] LABS: ALANINE AMINOTRANSFERASE 30 IU/L (13-69); ALBUMIN/GLOBULIN RATIO 0.47; ALKALINE PHOSPHATASE 167 IU/L (42-121); ANION GAP 21 (8-16); ASPARTATE AMINO TRANSFERASE 67 IU/L (15-46); BLOOD UREA NITROGEN 44 mg/dl (7-20); CALCIUM 7.1 mg/dl (8.4-10.2); CARBON DIOXIDE 13 mmol/L (21-31); CHLORIDE 112 mmol/L (97-110); CREATININE 2.99 mg/dl (0.61-1.24); GLUCOSE 152 mg/dl (70-220); POTASSIUM 3.7 mmol/L (3.5-5.1); SODIUM 142 mmol/L (135-144); TOTAL PROTEIN 6.2 g/dl (6.1-8.1)
[2017-10-28] MEDS: POTASSIUM CHLORIDE 20 MEQ POWDER FOR ORAL SOLN NGT (09:21)
[2017-10-28] MEDS: BICALUTAMIDE 50 MG TAB PO (09:22)
[2017-10-28] MEDS: MUPIROCIN 2% 22 GM OINT TOP ×2 (09:23→21:26)
[2017-10-28] MEDS: ASPIRIN 81 MG TAB NGT (09:23)
[2017-10-28] MEDS: FAMOTIDINE 20 MG TAB PO ×2 (09:23→21:25)
[2017-10-28] MEDS: MAGNESIUM SULFATE 2 GM/50 ML 50 ML IVPB (09:25)
[2017-10-28] MEDS ORDERED: VANCOMYCIN 1 GM 250 ML IVPB (10:00)
[2017-10-28] MEDS: SOD CHLORIDE 0.45% 1,000 ML IV (10:26)
[2017-10-28] MEDS: PENDING SANTYL ORDER FOR WOUND CARE XX (12:00)
[2017-10-28 15:49] LABS: PARTIAL THROMBOPLASTIN TIME 105.7 Sec (25.0-35.0)
[2017-10-28] MEDS: ALTEPLASE (CATHFLO) 2 MG INJ CATHETER (17:00)
[2017-10-28 18:11] LABS: PSA, FREE >17.0 ng/mL
[2017-10-28] MEDS: INSULIN GLARGINE [LANtus] 3 ML PEN SC (21:34)
[2017-10-28 21:43] LABS: PARTIAL THROMBOPLASTIN TIME 119.6 Sec (25.0-35.0)
[2017-10-29] MEDS: INSULIN ASPART [NOVOLOG] 3 ML PEN SC ×6 (02:11→21:45)
[2017-10-29] MEDS: PROPOFOL 100 ML IV ×4 (02:13→18:57)
[2017-10-29] MEDS: SOD CHLORIDE 0.45% 1,000 ML IV ×2 (02:15→17:45)
[2017-10-29 05:52] LABS: ADD MAN DIFF? NO
[2017-10-29 05:56] LABS: BASOPHILS % 0.2 % (0.0-2.0); EOSINOPHILS # 0.7 10^3/ul (0.0-0.5); EOSINOPHILS % 3.2 % (0.0-7.0); HEMATOCRIT 26.1 % (42.0-52.0); HEMOGLOBIN 8.9 g/dl (14.0-18.0); LYMPHOCYTES # 0.7 10^3/ul (0.8-2.9); LYMPHOCYTES % 3.5 % (15.0-51.0); MEAN CORPUSCULAR HEMOGLOBIN 29.5 pg (29.0-33.0); MEAN CORPUSCULAR HGB CONC 34.1 g/dl (32.0-37.0); MEAN CORPUSCULAR VOLUME 86.4 fl (82.0-101.0); MEAN PLATELET VOLUME 11.8 fl (7.4-10.4); MONOCYTE # 0.7 10^3/ul (0.3-0.9); MONOCYTES % 3.4 % (0.0-11.0); NEUTROPHIL # 18.1 10^3/ul (1.6-7.5); NEUTROPHILS % 88.9 % (39.0-77.0); NUCLEATED RED BLOOD CELLS # 0.1 10^3/ul (0.0-0.0); NUCLEATED RED BLOOD CELLS% 0.6 /100WBC (0.0-0.0); PLATELET COUNT 157 10^3/UL (140-415); POSITIVE DIFF @See below; RED BLOOD COUNT 3.02 10^6/ul (4.70-6.10); RED CELL DISTRIBUTION WIDTH 15.6 % (11.5-14.5)
[2017-10-29 05:56] LABS: WHITE BLOOD COUNT 20.4 10^3/ul (4.8-10.8)
[2017-10-29 06:14] LABS: ALANINE AMINOTRANSFERASE 26 IU/L (13-69); ALBUMIN 1.9 g/dl (3.3-4.9); ALBUMIN/GLOBULIN RATIO 0.46; ALKALINE PHOSPHATASE 150 IU/L (42-121); ANION GAP 25 (8-16); ASPARTATE AMINO TRANSFERASE 55 IU/L (15-46); BLOOD UREA NITROGEN 47 mg/dl (7-20); CALCIUM 6.8 mg/dl (8.4-10.2); CHLORIDE 109 mmol/L (97-110); CREATININE 2.78 mg/dl (0.61-1.24); GLUCOSE 192 mg/dl (70-220); POTASSIUM 4.5 mmol/L (3.5-5.1); SODIUM 139 mmol/L (135-144)
[2017-10-29 06:19] LABS: CARBON DIOXIDE 10 mmol/L (21-31)
[2017-10-29 06:22] LABS: PARTIAL THROMBOPLASTIN TIME 62.6 Sec (25.0-35.0)
[2017-10-29] MEDS: OCULAR LUBRICANT 3.5 GM OPH OINT BOTH EYES ×3 (06:34→17:45)
[2017-10-29] MEDS: ARTIFICIAL TEARS 15 ML OPH BOTH EYES ×3 (06:34→17:45)
[2017-10-29] MEDS: NA BICARBONATE 650 MG TAB PO ×3 (06:34→21:40)
[2017-10-29] MEDS: PIPER-TAZO 2.25 GM (PMX) 50 ML IVPB ×3 (06:34→21:40)
[2017-10-29] MEDS: FOSPHENYTOIN 100 MG PE/2ML INJ IV ×3 (06:44→21:40)
[2017-10-29 08:03] LABS: AADO2 Arterial 84.7 mmHg (7.0-24.0); Allen Test ACCEPTAB; Arterial Base Excess -13.5 mmol/L (-3.0-3); Arterial Blood Gas Oxygen Sat 98.9 mmHG (95.0-98.0); Arterial COHb 0.3 % (0.0-3.0); Arterial HCO3 12.3 mmol/L (22.0-26.0); Arterial MetHb 0.6 % (0.0-1.5); Arterial Total Hemglobin 9.4 g/dl (12.0-18.0); Arterial pCO2 28.2 mmhg (35-45); MODE VENT - AC; Site Right Radial
[2017-10-29] MEDS: ASPIRIN 81 MG TAB NGT (09:00)
[2017-10-29] MEDS: BICALUTAMIDE 50 MG TAB PO (09:13)
[2017-10-29] MEDS: LEVOTHYROXINE 25 MCG TAB PO (09:15)
[2017-10-29] MEDS: FAMOTIDINE 20 MG TAB PO ×2 (09:15→21:40)
[2017-10-29] MEDS: VANCOMYCIN 1 GM 250 ML IVPB (10:09)
[2017-10-29] MEDS: MUPIROCIN 2% 22 GM OINT TOP ×2 (10:09→21:41)
[2017-10-29] MEDS: LACOSAMIDE (100 MG/10 ML PO SYR) GTB ×2 (12:43→21:40)
[2017-10-29] MEDS: HEPARIN 25000 UNITS/250 ML 250 ML IV (18:59)
[2017-10-29 19:23] LABS: PARTIAL THROMBOPLASTIN TIME 78.1 Sec (25.0-35.0)
[2017-10-29] MEDS: INSULIN GLARGINE [LANtus] 3 ML PEN SC (21:46)
[2017-10-30] MEDS: INSULIN ASPART [NOVOLOG] 3 ML PEN SC ×6 (01:00→21:00)
[2017-10-30] MEDS: OCULAR LUBRICANT 3.5 GM OPH OINT BOTH EYES ×4 (01:51→18:29)
[2017-10-30] MEDS: PROPOFOL 100 ML IV ×2 (03:04→14:04)
[2017-10-30] MEDS: ARTIFICIAL TEARS 15 ML OPH BOTH EYES ×4 (05:42→18:29)
[2017-10-30 05:56] LABS: ADD MAN DIFF? NO
[2017-10-30 06:03] LABS: WHITE BLOOD COUNT 18.3 10^3/ul (4.8-10.8)
[2017-10-30 06:03] LABS: BASOPHIL # 0.1 10^3/ul (0.0-0.1); BASOPHILS % 0.3 % (0.0-2.0); EOSINOPHILS # 0.8 10^3/ul (0.0-0.5); EOSINOPHILS % 4.1 % (0.0-7.0); HEMATOCRIT 25.7 % (42.0-52.0); HEMOGLOBIN 8.5 g/dl (14.0-18.0); LYMPHOCYTES # 1.4 10^3/ul (0.8-2.9); LYMPHOCYTES % 7.5 % (15.0-51.0); MEAN CORPUSCULAR HEMOGLOBIN 28.1 pg (29.0-33.0); MEAN CORPUSCULAR HGB CONC 33.1 g/dl (32.0-37.0); MEAN CORPUSCULAR VOLUME 85.1 fl (82.0-101.0); MEAN PLATELET VOLUME 11.3 fl (7.4-10.4); MONOCYTES % 5.6 % (0.0-11.0); NEUTROPHIL # 14.9 10^3/ul (1.6-7.5); NEUTROPHILS % 81.4 % (39.0-77.0); NUCLEATED RED BLOOD CELLS # 0.2 10^3/ul (0.0-0.0); NUCLEATED RED BLOOD CELLS% 0.8 /100WBC (0.0-0.0); PLATELET COUNT 172 10^3/UL (140-415); POSITIVE DIFF @See below; RED BLOOD COUNT 3.02 10^6/ul (4.70-6.10); RED CELL DISTRIBUTION WIDTH 15.7 % (11.5-14.5)
[2017-10-30] MEDS: PIPER-TAZO 2.25 GM (PMX) 50 ML IVPB ×3 (06:28→21:45)
[2017-10-30] MEDS: NA BICARBONATE 650 MG TAB PO ×3 (06:28→21:46)
[2017-10-30] MEDS: LEVOTHYROXINE 25 MCG TAB PO (06:28)
[2017-10-30] MEDS: FOSPHENYTOIN 100 MG PE/2ML INJ IV ×3 (06:29→21:49)
[2017-10-30 06:46] LABS: PARTIAL THROMBOPLASTIN TIME 75.3 Sec (25.0-35.0)
[2017-10-30 06:52] LABS: ANION GAP 19 (8-16); BLOOD UREA NITROGEN 50 mg/dl (7-20); CALCIUM 6.7 mg/dl (8.4-10.2); CARBON DIOXIDE 12 mmol/L (21-31); CHLORIDE 108 mmol/L (97-110); CREATININE 3.06 mg/dl (0.61-1.24); GLUCOSE 61 mg/dl (70-220); POTASSIUM 4.1 mmol/L (3.5-5.1); SODIUM 135 mmol/L (135-144)
[2017-10-30] MEDS: MUPIROCIN 2% 22 GM OINT TOP ×2 (09:00→21:48)
[2017-10-30] MEDS: BICALUTAMIDE 50 MG TAB PO (09:00)
[2017-10-30] MEDS: LACOSAMIDE (100 MG/10 ML PO SYR) GTB ×2 (10:01→21:46)
[2017-10-30] MEDS: ASPIRIN 81 MG TAB NGT (10:01)
[2017-10-30] MEDS: FAMOTIDINE 20 MG TAB PO ×2 (10:02→21:46)
[2017-10-30] MEDS: DEXTROSE 50% 50 ML SYRINGE IV ×2 (10:19→14:01)
[2017-10-30] MEDS: SOD CHLORIDE 0.45% 1,000 ML IV (12:36)
[2017-10-30] MEDS: INSULIN GLARGINE [LANtus] 3 ML PEN SC (21:00)
[2017-10-31] MEDS: OCULAR LUBRICANT 3.5 GM OPH OINT BOTH EYES ×5 (01:53→23:59)
[2017-10-31] MEDS: INSULIN ASPART [NOVOLOG] 3 ML PEN SC ×6 (01:57→21:00)
[2017-10-31] MEDS: SOD CHLORIDE 0.45% 1,000 ML IV (05:18)
[2017-10-31] MEDS: NA BICARBONATE 650 MG TAB PO ×3 (05:19→22:23)
[2017-10-31] MEDS: FOSPHENYTOIN 100 MG PE/2ML INJ IV ×3 (05:19→23:58)
[2017-10-31] MEDS: ARTIFICIAL TEARS 15 ML OPH BOTH EYES ×4 (05:20→17:02)
[2017-10-31] MEDS: PIPER-TAZO 2.25 GM (PMX) 50 ML IVPB ×3 (05:21→22:23)
[2017-10-31 06:09] LABS: PARTIAL THROMBOPLASTIN TIME 72.3 Sec (25.0-35.0)
[2017-10-31] MEDS: LEVOTHYROXINE 25 MCG TAB PO (06:16)
[2017-10-31 07:22] LABS: VANCOMYCIN,RANDOM 26.2 ug/ml
[2017-10-31] MEDS: HEPARIN 25000 UNITS/250 ML 250 ML IV (08:21)
[2017-10-31] MEDS: LACOSAMIDE (100 MG/10 ML PO SYR) GTB ×2 (09:09→22:00)
[2017-10-31] MEDS: ASPIRIN 81 MG TAB NGT (09:10)
[2017-10-31] MEDS: FAMOTIDINE 20 MG TAB PO ×2 (09:10→20:57)
[2017-10-31] MEDS: BICALUTAMIDE 50 MG TAB PO (09:12)
[2017-10-31] MEDS: INSULIN GLARGINE [LANtus] 3 ML PEN SC ×2 (09:12→21:09)
[2017-10-31] MEDS: MUPIROCIN 2% 22 GM OINT TOP ×2 (09:13→21:12)
[2017-10-31 09:16] LABS: AADO2 Arterial 79.5 mmHg (7.0-24.0); Allen Test ACCEPTAB; Arterial Base Excess -11.4 mmol/L (-3.0-3); Arterial Blood Gas Oxygen Sat 98.6 mmHG (95.0-98.0); Arterial COHb 0 % (0.0-3.0); Arterial Fraction of Oxyhgb 98.2 % (93.0-99.0); Arterial HCO3 12.8 mmol/L (22.0-26.0); Arterial MetHb 0.4 % (0.0-1.5); Arterial Total Hemglobin 12.1 g/dl (12.0-18.0); Arterial pCO2 24.9 mmhg (35-45); MODE VENT - AC; Site Right Radial
[2017-10-31] MEDS: SOD CHLORIDE 0.9% 1,000 ML IV ×2 (14:55→23:59)
[2017-10-31] MEDS: PROPOFOL 100 ML IV (16:33)
[2017-10-31] MEDS: APIXABAN 5 MG TABLET NGT (20:57)
[2017-11-01] MEDS: INSULIN ASPART [NOVOLOG] 3 ML PEN SC ×6 (01:00→21:00)
[2017-11-01] MEDS: PIPER-TAZO 2.25 GM (PMX) 50 ML IVPB ×3 (05:43→23:22)
[2017-11-01] MEDS: FOSPHENYTOIN 100 MG PE/2ML INJ IV ×3 (05:43→22:34)
[2017-11-01] MEDS: NA BICARBONATE 650 MG TAB PO ×3 (05:44→21:53)
[2017-11-01] MEDS: OCULAR LUBRICANT 3.5 GM OPH OINT BOTH EYES ×4 (05:44→23:41)
[2017-11-01] MEDS: LEVOTHYROXINE 25 MCG TAB PO (06:18)
[2017-11-01] MEDS: ARTIFICIAL TEARS 15 ML OPH BOTH EYES ×5 (06:19→23:42)
[2017-11-01] MEDS: SOD CHLORIDE 0.9% 1,000 ML IV (06:40)
[2017-11-01] MEDS: FAMOTIDINE 20 MG TAB PO ×2 (08:53→20:29)
[2017-11-01] MEDS: ASPIRIN 81 MG TAB NGT (08:53)
[2017-11-01] MEDS: BICALUTAMIDE 50 MG TAB PO (08:56)
[2017-11-01] MEDS: APIXABAN 5 MG TABLET NGT ×2 (08:57→20:29)
[2017-11-01] MEDS: INSULIN GLARGINE [LANtus] 3 ML PEN SC ×2 (08:59→21:00)
[2017-11-01 09:08] LABS: AADO2 Arterial 104.4 mmHg (7.0-24.0); Allen Test ACCEPTAB; Arterial Base Excess -12.2 mmol/L (-3.0-3); Arterial Blood Gas Oxygen Sat 97.5 mmHG (95.0-98.0); Arterial COHb 0.3 % (0.0-3.0); Arterial Fraction of Oxyhgb 96.9 % (93.0-99.0); Arterial HCO3 13.6 mmol/L (22.0-26.0); Arterial MetHb 0.3 % (0.0-1.5); Arterial pCO2 30.8 mmhg (35-45); MODE VENT - AC; Site Right Radial
[2017-11-01] MEDS ORDERED: SODIUM BICARBONATE (IV ADD) 100 MEQ in DEXTROSE 5% 1,000 ML IV (09:30)
[2017-11-01 10:09] LABS: ADD MAN DIFF? NO
[2017-11-01 10:13] LABS: WHITE BLOOD COUNT 21.3 10^3/ul (4.8-10.8)
[2017-11-01 10:13] LABS: BASOPHIL # 0.1 10^3/ul (0.0-0.1); BASOPHILS % 0.2 % (0.0-2.0); EOSINOPHILS # 0.1 10^3/ul (0.0-0.5); EOSINOPHILS % 0.5 % (0.0-7.0); HEMATOCRIT 26.6 % (42.0-52.0); HEMOGLOBIN 9.1 g/dl (14.0-18.0); LYMPHOCYTES # 1.1 10^3/ul (0.8-2.9); LYMPHOCYTES % 5.2 % (15.0-51.0); MEAN CORPUSCULAR HEMOGLOBIN 29.2 pg (29.0-33.0); MEAN CORPUSCULAR HGB CONC 34.2 g/dl (32.0-37.0); MEAN CORPUSCULAR VOLUME 85.3 fl (82.0-101.0); MEAN PLATELET VOLUME 10.8 fl (7.4-10.4); MONOCYTES % 4.7 % (0.0-11.0); NEUTROPHIL # 18.8 10^3/ul (1.6-7.5); NUCLEATED RED BLOOD CELLS # 0.1 10^3/ul (0.0-0.0); NUCLEATED RED BLOOD CELLS% 0.3 /100WBC (0.0-0.0); PLATELET COUNT 179 10^3/UL (140-415); POSITIVE DIFF @See below; RED BLOOD COUNT 3.12 10^6/ul (4.70-6.10); RED CELL DISTRIBUTION WIDTH 15.9 % (11.5-14.5)
[2017-11-01 10:45] LABS: ALANINE AMINOTRANSFERASE 16 IU/L (13-69); ALBUMIN 2.1 g/dl (3.3-4.9); ALBUMIN/GLOBULIN RATIO 0.45; ALKALINE PHOSPHATASE 137 IU/L (42-121); ANION GAP 20 (8-16); ASPARTATE AMINO TRANSFERASE 39 IU/L (15-46); BLOOD UREA NITROGEN 55 mg/dl (7-20); CARBON DIOXIDE 12 mmol/L (21-31); CHLORIDE 110 mmol/L (97-110); GLUCOSE 117 mg/dl (70-220); SODIUM 138 mmol/L (135-144); TOTAL PROTEIN 6.7 g/dl (6.1-8.1)
[2017-11-01 10:53] LABS: CREATININE 2.59 mg/dl (0.61-1.24)
[2017-11-01] MEDS: MUPIROCIN 2% 22 GM OINT TOP ×2 (13:18→21:02)
[2017-11-01] MEDS: SODIUM BICARBONATE (IV ADD) 100 MEQ in DEXTROSE 5% 1,000 ML IV (13:36)
[2017-11-01] MEDS: LACOSAMIDE (100 MG/10 ML PO SYR) GTB ×2 (13:36→21:54)
[2017-11-01] MEDS ORDERED: PHENYLephrine 20MG IN 250 ML 250 ML IV (19:30)
[2017-11-01] MEDS: SOD CHLORIDE 0.9% 500 ML IV (19:35)
[2017-11-01] MEDS ORDERED: PHENYLephrine 40 MG in DEXTROSE 5% 496 ML IV (20:00)
[2017-11-02] MEDS: INSULIN ASPART [NOVOLOG] 3 ML PEN SC ×6 (01:00→21:00)
[2017-11-02] MEDS: LEVOTHYROXINE 25 MCG TAB PO (06:23)
[2017-11-02] MEDS: NA BICARBONATE 650 MG TAB PO ×3 (06:23→21:32)
[2017-11-02] MEDS: FOSPHENYTOIN 100 MG PE/2ML INJ IV ×3 (06:24→21:33)
[2017-11-02] MEDS: OCULAR LUBRICANT 3.5 GM OPH OINT BOTH EYES ×3 (06:24→17:39)
[2017-11-02] MEDS: ARTIFICIAL TEARS 15 ML OPH BOTH EYES ×3 (06:24→17:39)
[2017-11-02] MEDS: PIPER-TAZO 2.25 GM (PMX) 50 ML IVPB (06:25)
[2017-11-02 06:34] LABS: VANCOMYCIN,RANDOM 20.3 ug/ml
[2017-11-02 09:27] LABS: AADO2 Arterial 121.2 mmHg (7.0-24.0); Allen Test ACCEPTAB; Arterial Base Excess -9.3 mmol/L (-3.0-3); Arterial Blood Gas Oxygen Sat 97.4 mmHG (95.0-98.0); Arterial COHb 0.3 % (0.0-3.0); Arterial Fraction of Oxyhgb 96.5 % (93.0-99.0); Arterial HCO3 14.4 mmol/L (22.0-26.0); Arterial MetHb 0.6 % (0.0-1.5); Arterial pCO2 24.5 mmhg (35-45); MODE VENT - AC; Site Right Radial
[2017-11-02] MEDS: LACOSAMIDE (100 MG/10 ML PO SYR) GTB ×2 (09:50→22:12)
[2017-11-02] MEDS: ASPIRIN 81 MG TAB NGT (09:51)
[2017-11-02] MEDS: BICALUTAMIDE 50 MG TAB PO (09:51)
[2017-11-02] MEDS: APIXABAN 5 MG TABLET NGT ×2 (09:51→21:33)
[2017-11-02] MEDS: INSULIN GLARGINE [LANtus] 3 ML PEN SC ×2 (09:55→21:57)
[2017-11-02] MEDS: FAMOTIDINE 20 MG TAB PO ×2 (09:55→21:33)
[2017-11-02] MEDS: MUPIROCIN 2% 22 GM OINT TOP ×2 (09:56→21:33)
[2017-11-02 11:37] LABS: ANION GAP 19 (8-16); BLOOD UREA NITROGEN 58 mg/dl (7-20); CALCIUM 7.1 mg/dl (8.4-10.2); CARBON DIOXIDE 14 mmol/L (21-31); CHLORIDE 109 mmol/L (97-110); GLUCOSE 159 mg/dl (70-220); POTASSIUM 3.9 mmol/L (3.5-5.1); SODIUM 138 mmol/L (135-144)
[2017-11-02] MEDS: SODIUM BICARBONATE (IV ADD) 100 MEQ in DEXTROSE 5% 1,000 ML IV (13:04)
[2017-11-02] MEDS: COLLAGENASE 30 GM TUBE TOP (21:33)
[2017-11-03] MEDS: OCULAR LUBRICANT 3.5 GM OPH OINT BOTH EYES ×4 (00:17→17:50)
[2017-11-03] MEDS: ARTIFICIAL TEARS 15 ML OPH BOTH EYES ×4 (00:18→17:50)
[2017-11-03] MEDS: INSULIN ASPART [NOVOLOG] 3 ML PEN SC ×6 (00:56→21:00)
[2017-11-03] MEDS: DEXTROSE 50% 50 ML SYRINGE IV (04:02)
[2017-11-03] MEDS: FOSPHENYTOIN 100 MG PE/2ML INJ IV ×3 (06:21→21:26)
[2017-11-03] MEDS: LEVOTHYROXINE 25 MCG TAB PO (06:22)
[2017-11-03] MEDS: NA BICARBONATE 650 MG TAB PO ×3 (06:22→21:26)
[2017-11-03 06:36] LABS: ANION GAP 17 (8-16); BLOOD UREA NITROGEN 57 mg/dl (7-20); CALCIUM 7.2 mg/dl (8.4-10.2); CARBON DIOXIDE 17 mmol/L (21-31); CHLORIDE 110 mmol/L (97-110); GLUCOSE 66 mg/dl (70-220); POTASSIUM 3.5 mmol/L (3.5-5.1); SODIUM 140 mmol/L (135-144)
[2017-11-03] MEDS: MUPIROCIN 2% 22 GM OINT TOP ×2 (08:54→21:27)
[2017-11-03] MEDS: BICALUTAMIDE 50 MG TAB PO (08:57)
[2017-11-03] MEDS: SODIUM BICARBONATE (IV ADD) 100 MEQ in DEXTROSE 5% 1,000 ML IV (08:58)
[2017-11-03] MEDS: FAMOTIDINE 20 MG TAB PO ×2 (08:58→21:26)
[2017-11-03] MEDS: ASPIRIN 81 MG TAB NGT (08:58)
[2017-11-03] MEDS: APIXABAN 5 MG TABLET NGT ×2 (09:08→21:26)
[2017-11-03] MEDS: LACOSAMIDE (100 MG/10 ML PO SYR) GTB ×2 (09:25→21:27)
[2017-11-03] MEDS ORDERED: INSULIN GLARGINE [LANtus] 3 ML PEN SC (20:00)
[2017-11-03] MEDS: COLLAGENASE 30 GM TUBE TOP (21:27)
[2017-11-03] MEDS: INSULIN GLARGINE [LANtus] 3 ML PEN SC (21:40)
[2017-11-03 23:15] LABS: AADO2 Arterial 638.7 mmHg (7.0-24.0); Allen Test ACCEPTAB; Arterial Blood Gas Oxygen Sat 81.7 mmHG (95.0-98.0); Arterial COHb 0.3 % (0.0-3.0); Arterial Fraction of Oxyhgb 80.9 % (93.0-99.0); Arterial HCO3 18.3 mmol/L (22.0-26.0); Arterial MetHb 0.7 % (0.0-1.5); Arterial Total Hemglobin 8.6 g/dl (12.0-18.0); Arterial pCO2 27.2 mmhg (35-45); MODE AMBU BAG; Site Right Radial
[2017-11-04] MEDS: ARTIFICIAL TEARS 15 ML OPH BOTH EYES ×5 (00:59→23:43)
[2017-11-04] MEDS: OCULAR LUBRICANT 3.5 GM OPH OINT BOTH EYES ×5 (00:59→23:41)
[2017-11-04] MEDS: INSULIN ASPART [NOVOLOG] 3 ML PEN SC ×6 (00:59→20:58)
[2017-11-04] MEDS: LORAZEPAM 2 MG INJ IV (04:00)
[2017-11-04 05:07] LABS: ADD MAN DIFF? NO
[2017-11-04 05:14] LABS: ABNORMAL IP MESSAGE 1; BASOPHILS % 0.2 % (0.0-2.0); EOSINOPHILS # 0.3 10^3/ul (0.0-0.5); EOSINOPHILS % 1.1 % (0.0-7.0); HEMATOCRIT 21.4 % (42.0-52.0); HEMOGLOBIN 7.3 g/dl (14.0-18.0); LYMPHOCYTES # 1.4 10^3/ul (0.8-2.9); LYMPHOCYTES % 5.3 % (15.0-51.0); MEAN CORPUSCULAR HEMOGLOBIN 28.9 pg (29.0-33.0); MEAN CORPUSCULAR HGB CONC 34.1 g/dl (32.0-37.0); MEAN CORPUSCULAR VOLUME 84.6 fl (82.0-101.0); MEAN PLATELET VOLUME 11.4 fl (7.4-10.4); NEUTROPHIL # 22.4 10^3/ul (1.6-7.5); NEUTROPHILS % 87.9 % (39.0-77.0); NUCLEATED RED BLOOD CELLS% 0.1 /100WBC (0.0-0.0); PLATELET COUNT 161 10^3/UL (140-415); POSITIVE DIFF @See below; RED BLOOD COUNT 2.53 10^6/ul (4.70-6.10); RED CELL DISTRIBUTION WIDTH 16.2 % (11.5-14.5)
[2017-11-04 05:14] LABS: WHITE BLOOD COUNT 25.5 10^3/ul (4.8-10.8)
[2017-11-04 05:32] LABS: ANION GAP 15 (8-16); BLOOD UREA NITROGEN 55 mg/dl (7-20); CALCIUM 7.3 mg/dl (8.4-10.2); CARBON DIOXIDE 22 mmol/L (21-31); CHLORIDE 108 mmol/L (97-110); CREATININE 2.43 mg/dl (0.61-1.24); GLUCOSE 58 mg/dl (70-220); PHOSPHORUS 5.2 mg/dl (2.5-4.9); POTASSIUM 3.2 mmol/L (3.5-5.1); SODIUM 142 mmol/L (135-144)
[2017-11-04] MEDS: LEVOTHYROXINE 25 MCG TAB PO (05:48)
[2017-11-04] MEDS: FOSPHENYTOIN 100 MG PE/2ML INJ IV ×3 (05:48→23:40)
[2017-11-04] MEDS: NA BICARBONATE 650 MG TAB PO ×3 (05:48→22:50)
[2017-11-04] MEDS: SODIUM BICARBONATE (IV ADD) 100 MEQ in DEXTROSE 5% 1,000 ML IV (05:49)
[2017-11-04 06:17] LABS: AADO2 Arterial 192.2 mmHg (7.0-24.0); Arterial Base Excess -3.9 mmol/L (-3.0-3); Arterial Blood Gas Oxygen Sat 99.2 mmHG (95.0-98.0); Arterial COHb 0.3 % (0.0-3.0); Arterial Fraction of Oxyhgb 98.1 % (93.0-99.0); Arterial HCO3 18.6 mmol/L (22.0-26.0); Arterial MetHb 0.8 % (0.0-1.5); Arterial Total Hemglobin 7.6 g/dl (12.0-18.0); Arterial pCO2 24.4 mmhg (35-45); MODE VENT - AC; Site Right Brachial
[2017-11-04] MEDS: ASPIRIN 81 MG TAB NGT (09:04)
[2017-11-04] MEDS: FAMOTIDINE 20 MG TAB PO ×2 (09:04→21:00)
[2017-11-04] MEDS: LACOSAMIDE (100 MG/10 ML PO SYR) GTB ×2 (09:04→23:40)
[2017-11-04] MEDS: POTASSIUM CHLORIDE 100 ML IVPB ×2 (09:04→11:47)
[2017-11-04] MEDS: BICALUTAMIDE 50 MG TAB PO (09:08)
[2017-11-04] MEDS: APIXABAN 5 MG TABLET NGT ×2 (09:09→21:01)
[2017-11-04] MEDS: MUPIROCIN 2% 22 GM OINT TOP ×2 (09:09→21:02)
[2017-11-04] MEDS: LEVETIRACETAM 500 MG (PMX) 100 ML IVPB ×2 (14:41→21:02)
[2017-11-04] MEDS ORDERED: VANCOMYCIN IV PER PHARMACY XX (18:00)
[2017-11-04] MEDS: INSULIN GLARGINE [LANtus] 3 ML PEN SC (20:57)
[2017-11-04] MEDS: COLLAGENASE 30 GM TUBE TOP (21:02)
[2017-11-04] MEDS: VANCOMYCIN 1.5 GM in SOD CHLORIDE 0.9% 250 ML IVPB (21:22)
[2017-11-04] MEDS ORDERED: PIPER-TAZO 2.25 GM (PMX) 50 ML IVPB (22:00)
[2017-11-04] MEDS: PIPER-TAZO 2.25 GM (PMX) 50 ML IVPB (22:50)
[2017-11-05] MEDS: LORAZEPAM 2 MG INJ IV ×3 (00:05→18:18)
[2017-11-05] MEDS: INSULIN ASPART [NOVOLOG] 3 ML PEN SC ×6 (02:07→21:25)
[2017-11-05] MEDS: DEXTROSE 50% 50 ML SYRINGE IV ×2 (02:20→02:42)
[2017-11-05] MEDS: SODIUM BICARBONATE (IV ADD) 100 MEQ in DEXTROSE 5% 1,000 ML IV (05:18)
[2017-11-05] MEDS: FOSPHENYTOIN 100 MG PE/2ML INJ IV ×3 (06:34→21:06)
[2017-11-05] MEDS: OCULAR LUBRICANT 3.5 GM OPH OINT BOTH EYES ×3 (06:34→17:36)
[2017-11-05] MEDS: ARTIFICIAL TEARS 15 ML OPH BOTH EYES ×3 (06:34→17:37)
[2017-11-05] MEDS: LEVOTHYROXINE 25 MCG TAB PO (06:36)
[2017-11-05] MEDS: PIPER-TAZO 2.25 GM (PMX) 50 ML IVPB ×3 (06:36→21:06)
[2017-11-05 07:20] LABS: ADD MAN DIFF? NO
[2017-11-05 07:22] LABS: WHITE BLOOD COUNT 26.8 10^3/ul (4.8-10.8)
[2017-11-05 07:22] LABS: ABNORMAL IP MESSAGE 1; BASOPHILS % 0.1 % (0.0-2.0); EOSINOPHILS # 0.4 10^3/ul (0.0-0.5); EOSINOPHILS % 1.4 % (0.0-7.0); HEMATOCRIT 20.6 % (42.0-52.0); LYMPHOCYTES # 1.3 10^3/ul (0.8-2.9); LYMPHOCYTES % 4.8 % (15.0-51.0); MEAN CORPUSCULAR HEMOGLOBIN 28.8 pg (29.0-33.0); MEAN CORPUSCULAR VOLUME 84.8 fl (82.0-101.0); MEAN PLATELET VOLUME 10.5 fl (7.4-10.4); MONOCYTE # 1.2 10^3/ul (0.3-0.9); MONOCYTES % 4.3 % (0.0-11.0); NEUTROPHIL # 23.5 10^3/ul (1.6-7.5); NEUTROPHILS % 87.9 % (39.0-77.0); PLATELET COUNT 130 10^3/UL (140-415); POSITIVE DIFF @See below; RED BLOOD COUNT 2.43 10^6/ul (4.70-6.10); RED CELL DISTRIBUTION WIDTH 16.3 % (11.5-14.5)
[2017-11-05] MEDS ORDERED: ALTEPLASE (CATHFLO) 2 MG INJ CATHETER (07:30)
[2017-11-05] MEDS: LEVETIRACETAM 500 MG (PMX) 100 ML IVPB ×2 (08:37→21:06)
[2017-11-05] MEDS: LACOSAMIDE (100 MG/10 ML PO SYR) GTB ×2 (08:37→22:24)
[2017-11-05] MEDS: NA BICARBONATE 650 MG TAB PO ×3 (08:38→21:06)
[2017-11-05] MEDS: FAMOTIDINE 20 MG TAB PO ×2 (08:38→21:06)
[2017-11-05] MEDS: MUPIROCIN 2% 22 GM OINT TOP ×2 (08:38→21:11)
[2017-11-05] MEDS: BICALUTAMIDE 50 MG TAB PO (08:52)
[2017-11-05 10:27] LABS: ANION GAP 15 (8-16); BLOOD UREA NITROGEN 57 mg/dl (7-20); CALCIUM 7.3 mg/dl (8.4-10.2); CARBON DIOXIDE 21 mmol/L (21-31); CHLORIDE 107 mmol/L (97-110); CREATININE 2.19 mg/dl (0.61-1.24); GLUCOSE 105 mg/dl (70-220); POTASSIUM 3.7 mmol/L (3.5-5.1); SODIUM 139 mmol/L (135-144)
[2017-11-05] MEDS: ASPIRIN 81 MG TAB NGT (11:58)
[2017-11-05] MEDS: APIXABAN 5 MG TABLET NGT ×2 (11:59→21:22)
[2017-11-05 12:58] LABS: PROCALCITONIN 1.06 ng/mL (<0.10)
[2017-11-05] MEDS: COLLAGENASE 30 GM TUBE TOP (21:12)
[2017-11-06] MEDS: ARTIFICIAL TEARS 15 ML OPH BOTH EYES ×4 (00:21→18:30)
[2017-11-06] MEDS: OCULAR LUBRICANT 3.5 GM OPH OINT BOTH EYES ×4 (00:21→18:30)
[2017-11-06] MEDS: INSULIN ASPART [NOVOLOG] 3 ML PEN SC ×4 (01:00→13:00)
[2017-11-06] MEDS: FOSPHENYTOIN 100 MG PE/2ML INJ IV (05:22)
[2017-11-06] MEDS: PIPER-TAZO 2.25 GM (PMX) 50 ML IVPB (05:22)
[2017-11-06] MEDS: LORAZEPAM 2 MG INJ IV (05:22)
[2017-11-06] MEDS: NA BICARBONATE 650 MG TAB PO (05:23)
[2017-11-06 05:27] LABS: VANCOMYCIN,RANDOM 23.8 ug/ml
[2017-11-06] MEDS: LEVOTHYROXINE 25 MCG TAB PO (07:26)
[2017-11-06] MEDS: MUPIROCIN 2% 22 GM OINT TOP (08:55)
[2017-11-06] MEDS: ASPIRIN 81 MG TAB NGT (08:55)
[2017-11-06] MEDS: APIXABAN 5 MG TABLET NGT (08:55)
[2017-11-06] MEDS: FAMOTIDINE 20 MG TAB PO (08:55)
[2017-11-06] MEDS: LACOSAMIDE (100 MG/10 ML PO SYR) GTB ×2 (08:57→21:00)
[2017-11-06] MEDS: LEVETIRACETAM 500 MG (PMX) 100 ML IVPB ×2 (08:59→21:00)
[2017-11-06] MEDS ORDERED: DIMETHICONE STICK TOP (14:30)
[2017-11-06] MEDS ORDERED: ARTIFICIAL TEARS 15 ML OPH BOTH EYES (14:30)
[2017-11-06] MEDS: morphine (DRIP) 100 MG/100 ML 100 ML IV (16:30)
[2017-11-06] MEDS: COLLAGENASE 30 GM TUBE TOP (21:00)
[2017-11-07] MEDS: ARTIFICIAL TEARS 15 ML OPH BOTH EYES ×2 (06:28)
[2017-11-07] MEDS: OCULAR LUBRICANT 3.5 GM OPH OINT BOTH EYES ×2 (06:28)
[2017-11-07] MEDS: LACOSAMIDE (100 MG/10 ML PO SYR) GTB (08:50)
[2017-11-07] MEDS: LEVETIRACETAM 500 MG (PMX) 100 ML IVPB ×4 (09:00→22:50)
[2017-11-07] MEDS: morphine (DRIP) 100 MG/100 ML 100 ML IV (16:43)
[2017-11-07] MEDS: COLLAGENASE 30 GM TUBE TOP (21:00)
[2017-11-09] MEDS ORDERED: VANCOMYCIN 1 GM 250 ML IVPB (17:00)
== END 2017-11-08 01:11 | disposition expired | DRG 870 ==
LOC: MS2 11-07 15:27 → ICU 20:15 → E/R 18:56
PROC: 5A1955Z Respiratory Ventilation, Greater than 96 Consecutive Hours (ICD-10-PCS; principal; 2017-10-24)
PROC: 05H533Z Insertion of Infusion Device into Right Subclavian Vein, Percutaneous Approach (ICD-10-PCS; 2017-10-24)
PROC: 0BH17EZ Insertion of Endotracheal Airway into Trachea, Via Natural or Artificial Opening (ICD-10-PCS; 2017-10-24)
PROC: 5A12012 Performance of Cardiac Output, Single, Manual (ICD-10-PCS; 2017-10-24)
PROC: 0W9B00Z Drainage of Left Pleural Cavity with Drainage Device, Open Approach (ICD-10-PCS; 2017-10-26)
PROC: 30253N1 (ICD-10-PCS; 2017-10-26)
DX: A41.9 Sepsis, unspecified organism (principal); L89.153 Pressure ulcer of sacral region, stage 3; L89.894 Pressure ulcer of other site, stage 4; R65.21 Severe sepsis with septic shock; J96.01 Acute respiratory failure with hypoxia; J18.9 Pneumonia, unspecified organism; N17.9 Acute kidney failure, unspecified; E87.0 Hyperosmolality and hypernatremia; E87.2 Acidosis; I82.403 Acute embolism and thrombosis of unspecified deep veins of lower extremity, bilateral; G93.1 Anoxic brain damage, not elsewhere classified; E44.0 Moderate protein-calorie malnutrition; J93.9 Pneumothorax, unspecified; C79.9 Secondary malignant neoplasm of unspecified site; I46.9 Cardiac arrest, cause unspecified; I49.01 Ventricular fibrillation; E86.0 Dehydration; I12.9 Hypertensive chronic kidney disease with stage 1 through stage 4 chronic kidney disease, or unspecified chronic kidney disease; J44.9 Chronic obstructive pulmonary disease, unspecified; D69.6 Thrombocytopenia, unspecified; D63.1 Anemia in chronic kidney disease; E11.22 Type 2 diabetes mellitus with diabetic chronic kidney disease; E11.649 Type 2 diabetes mellitus with hypoglycemia without coma; E03.9 Hypothyroidism, unspecified; G40.909 Epilepsy, unspecified, not intractable, without status epilepticus; N18.9 Chronic kidney disease, unspecified; R62.7 Adult failure to thrive; Z85.46 Personal history of malignant neoplasm of prostate; Z68.21 Body mass index [BMI] 21.0-21.9, adult; Z79.899 Other long term (current) drug therapy; Z79.82 Long term (current) use of aspirin
CPT/HCPCS: 31500; 36415; 36430; 36600; 70450; 71045; 74018; 76775; 80048; 80053; 80185; 80202; 81001; 82150; 82803; 82962; 83605; 83690; 83735; 83935; 84100; 84145; 84153; 84154; 84300; 84484; 85025; 85049; 85362; 85378; 85384; 85610; 85670; 85730; 86850; 86900; 86901; 86920; 87040; 87070; 87081; 87086; 87400; 92950; 93005; 93306; 93970; 94002; 94003; 94770; 95819; 96365; 96366; 96367; 96368; 96375; 96376; 99291-25